=== PATIENT | female | born 1955 ===

== ENCOUNTER 2022-10-06 17:53 | Emergency (ER) | payer OTHER ==
--- OUTSIDE RECORDS SUMMARY | 2022-10-06 18:00 | XMS REPORT | Continuity of Care Document ---
:1955 Author Organization [facility] t Address [address] [place] [address] [place] [id number] Care Team Providers Name Role Phone [phone] Primary Care Physician Unavailable NOEMÍ VALADEZ Attending Clinician Unavailable JANNETTE NAILS Attending Clinician Unavailable Dave DANG, Elif Ramirez Attending Clinician Eva ROSEN, Selene Machuca Attending Clinician Unavailable Ara DANG, Salvador Schwab Attending Clinician SANAZ SALAMANCA Attending Clinician Unavailable Jeffery Rosado MD Attending Clinician Troy Cordon NP Attending Clinician Devon Hoyt MD Attending Clinician [phone] Dave Lemus MD Attending Clinician FOG_A_Provider Attending Clinician Unavailable Janie Mcallister Attending Clinician MORRIS DOVER Attending Clinician Unavailable Krysten Silverman MA Attending Clinician Unavailable KRIS CORBIN Attending Clinician Unavailable Nelli Funes MA Attending Clinician Unavailable MURIEL WALTER Attending Clinician Unavailable NOEMÍ VALADEZ Attending Clinician Unavailable Mirela DANG, Jerry Sorto Attending Clinician Emory Medina Attending Clinician Unavailable IRMA FINCH Attending Clinician Unavailable Noemí Valadez MD Attending Clinician NOEMÍ VALADEZ Admitting Clinician Unavailable FOG_A_Provider Admitting Clinician Unavailable Emory Medina Admitting Clinician Unavailable Payers Payer Name Policy Type Policy Number Effective Date Expiration Date Vanesa marquez AETNA HMO POS QPOS [id number] 2015 00:00:00 AETNA MEDICARE HMO [id number] POS PPO 00:00:00 MEDICARE PLAN PPO - [id number] AETNA AETNA (MEDICARE [id number] 2021 REPLACEMENT PPO) 00:00:00 [employer]ETNA MEDICARE PPO [id number] 2021 00:00:00 Problems Condition Condition Condition Status Onset Resolution Last Treating Co mments Source Name Details Category Date Date Treatment Clinician Date Essential Essential Disease Active [facility] hypertensi hypertensi 1 [facility] on on 00:[facility]: Hospita 00 l Statin Statin Disease Recurre 2019-05 [facility] intoleranc intoleranc nce [address] [facility] e e 00:00: Hospita 00 l Agatston Agatston Disease Active Metho di CAC score CAC score 02-13 st 100-199 100-199 00:00: Hospita 00 l High serum High serum Disease Active M [facility]i lipoprotei lipoprotei 928 st n(a) n(a) 00:00: Hospita 00 l Hyperlipid Hyperlipid Disease Active M ethodi emia emia 7-16 st 00:00: Hospita 00 l CAD in CAD in Disease Active [facility] navajo navajo 5-07 st artery artery 00:00: Hospita 00 l Pure Pure Disease Active [facility] hyperchole hyperchole 5-07 st sterolemia sterolemia 00:00: Ho spita 00 l Dizziness Dizziness Disease Active [facility] 3-20 st 00:00: Hospita 00 l Ptosis Ptosis Disease Active [address] 00:00: of 00 Medicin e Abnormal Abnormal Disease Active 2015-05 Metho di ECG ECG 2-08 st 00:00: Hospita 00 l SOB SOB Disease Active 2015-05 [facility] (shortness (shortness 2- st of breath) of breath) 00:00: Ho spita 00 l Irregular Irregular Disease Active 2015-05 [facility] heart beat heart beat 06-26 00:00: Hospita 00 l Allergies, Adverse Reactions, Alerts Allergy Allergy Status Severity Reaction(s) Onset Inactive Treating Comm ents Source Name Type Date Date Clinician NO KNOWN Allergy Active [facility] Family History Family Member Diagnosis Comments Start Date Stop Date Source Natural brother CABG/Stent [facility] Natural brother Heart failure Method [facility] Natural father CABG/Stent [facility] Natural father Heart failure [facility] Paternal aunt Breast cancer [facility] Natural sister CABG/Stent [facility] Natural sister Heart failure [facility] Natural sister Breast cancer [facility] Social History Social Habit Start Date Stop Date Quantity Comments Source History SDOH [facility] Alcohol Comment Medical C enter History SDOH [facility] Alcohol Std Drinks Medica l Center History SDOH [facility] Alcohol Binge Medical [facility] [facility] Gender identity [facility] Sexual orientation [facility] Alcohol intake 2022-06-28 2022-06-28 Lifetime Religion 00:00:00 00:00:00 non-drinker Hospital (finding) History of Social 2022-06-28 2022-06-[address] function 00:00:00 00:00:00 Hospital Tobacco use and 2022-03-29 2022-03-29 Smokeless Religion exposure 00:00:00 00:00:00 tobacco non-user Hospital History SDOH 2019-08-05 2019-08-[address] [facility] Alcohol Frequency 00:00:00 00:00:00 [facility] Center Sex Ass[birth year] At [birth year] Religion 00:00:00 00:00:00 Hospital Smoking Status Start Date Stop Date Source Never smoked tobacco Religion H ospital Medications Ordered Filled Start Stop Current Ordering Indication Dosage Frequency Signature Comments Components Source Medication Medication Date Date Medication? Clinician (SIG) Name Name aspirin Yes 81mg QD Take 1 [facility] (ECOTRIN) 06-27 tablet (81 st 81 MG 14:50: mg total) Hospita enteric 19 by mouth l coated daily. tablet dicyclomine Yes 10mg [id number] Take 1 [facility] (BENTYL) 10 2-[id number] MG capsule 00:00: 3D (10 mg Hospi ta 00 total) by l mouth 3 (three) times a day as needed (abdominal cramps). evolocumab Yes 140mg Q14D Inject 1 [facility] (REPATHA) 1-25 mL ([address] 140 mg/mL 00:00: total) Hospit a syringe 00 under the l injection skin every 14 (fourteen) days. evolocumab 2022- No 140mg Q14D Inject 1 M [facility]i (REPATHA) 1-25 01-25 mL ([address] 140 mg/mL 00:00: 00:00 total) Hospi ta syringe 00 :00 under the l injection skin every 14 (fourteen) days. spironolact 2021-05 Yes 25mg QD Take 1 Meth ayana one 2-30 tablet (25 st (ALDACTONE) 00:00: mg total) H ospita 25 MG 00 by mouth l tablet daily. aspirin 2021-05 Yes 81mg QD Take 1 [facility] (ECOTRIN) 2-20 tablet (81 st 81 MG 10:18: mg total) Hospita enteric 29 by mouth l coated daily. tablet aspirin 2021-05 Yes 81mg QD Take 1 [facility] (ECOTRIN) 2-20 tablet (81 st 81 MG 10:18: mg total) Hospita enteric 29 by mouth l coated daily. tablet aspirin 2021-05 Yes 81mg QD Take 1 [facility] (ECOTRIN) 2-20 tablet (81 st 81 MG 10:18: mg total) Hospita enteric 29 by mouth l coated daily. tablet aspirin 2021-05 Yes 81mg QD Take 1 [facility] (ECOTRIN) 2-20 tablet (81 st 81 MG 10:18: mg total) Hospita enteric 29 by mouth l coated daily. tablet amitriptyli 2021-05 No 10mg QD Take 1 [facility] ne (ELAVIL) 2-20 12-21 tablet (10 s t 10 MG 00:00: 05:59 mg total) Hospit a tablet 00 :00 by mouth l nightly. amitriptyli 2021-05 No 10mg QD Take 1 [facility] ne (ELAVIL) 2-20 12-21 tablet (10 s t 10 MG 00:00: 05:59 mg total) Hospit a tablet 00 :00 by mouth l nightly. amitriptyli 2021-05- No 10mg QD Take 1 Met [facility]odi ne (ELAVIL) 2-20 12-21 tablet (10 s t 10 MG 00:00: 05:59 mg total) Hospit a tablet 00 :00 by mouth l nightly. amitriptyli 2021-05- No 10mg QD Take 1 Met [facility]odi ne (ELAVIL) 2-20 12-21 tablet (10 s t 10 MG 00:00: 05:59 mg total) Hospit a tablet 00 :00 by mouth l nightly. amitriptyli 2021-05- No 10mg QD Take 1 Met [facility]odi ne (ELAVIL) 2-20 02-09 tablet (10 s t 10 MG 00:00: 00:00 mg total) Hospit a tablet 00 :00 by mouth l nightly. zolpidem 2021-05 Yes [facility] (AMBIEN) 10 1-17 st mg tablet 00:00: Hospita 00 l methylPREDN 2021-05- No follow Met [facility]odi ISolone 1-11 -[address] (Medrol, 00:00: 05:59 directions Ho spita Shan,) 4 mg 00 :00 l tablet methylPREDN 2021-05- No follow Met [facility] ISolone 1-11 -[address] (Medrol, 00:00: 05:59 directions Ho spita Shan,) 4 mg 00 :00 l tablet methylPREDN 2021-05- No follow Met [facility]odi ISolone 1-11 -[address] (Medrol, 00:00: 05:59 directions Ho spita Shan,) 4 mg 00 :00 l tablet methylPREDN 2021-05- No follow Met hodi ISolone 1-11 -[address] (Medrol, 00:00: 05:59 directions Ho spita Shan,) 4 mg 00 :00 l tablet methylPREDN 2021-05- No follow Met hodi ISolone 1-11 -[address] (Medrol, 00:00: 05:59 directions Ho spita Shan,) 4 mg 00 :00 l tablet spironolact 2021- Yes Method i one - st (ALDACTONE) 00:00: Hospit a 50 MG 00 l tablet spironolact 2021- Yes Method i one 05-26 st (ALDACTONE) 00:00: Hospit a 50 MG 00 l tablet spironolact 2021- Yes Method i one 05-26 st (ALDACTONE) 00:00: Hospit a 50 MG 00 l tablet spironolact 2021- Yes Method i one 05-26 st (ALDACTONE) 00:00: Hospit a 50 MG 00 l tablet spironolact 2021-053- No Metho di one 05-[address] (ALDACTONE) 00:00: 00:00 Hospi ta 50 MG 00 :00 l tablet aspirin 2022-0 Yes 81mg QD Take 1 [facility] (ECOTRIN) 7-11 tablet (81 st 81 MG 15:32: mg total) Hospita enteric 46 by mouth l coated daily. tablet aspirin 2022-0 Yes 81mg QD Take 1 [facility] (ECOTRIN) 7-11 tablet (81 st 81 MG 15:32: mg total) Hospita enteric 46 by mouth l coated daily. tablet aspirin 2022-0 Yes 81mg QD Take 1 [facility] (ECOTRIN) 7-11 tablet (81 st 81 MG 15:32: mg total) Hospita enteric 46 by mouth l coated daily. tablet evolocumab 2022-0 Yes 140mg Q14D Inject 1 [facility] (REPATHA) 1-27 mL ([address] 140 mg/mL 00:00: total) Hospit a syringe 00 under the l injection skin every 14 (fourteen) days. evolocumab 2022-0 Yes 140mg Q14D Inject 1 [facility] (REPATHA) 1-27 mL ([address] 140 mg/mL 00:00: total) Hospit a syringe 00 under the l injection skin every 14 (fourteen) days. evolocumab 2022-0 Yes 140mg Q14D Inject 1 [facility] (REPATHA) 1-27 mL ([address] 140 mg/mL 00:00: total) Hospit a syringe 00 under the l injection skin every 14 (fourteen) days. evolocumab 2022-0 Yes 140mg Q14D Inject 1 [facility] (REPATHA) 1-27 mL ([address] 140 mg/mL 00:00: total) Hospit a syringe 00 under the l injection skin every 14 (fourteen) days. evolocumab 2021-0 Yes 140mg Q14D Inject 1 [facility] (REPATHA) 1-27 mL ([address] 140 mg/mL 00:00: total) Hospit a syringe 00 under the l injection skin every 14 (fourteen) days. evolocumab 2021-0 Yes 140mg Q14D Inject 1 [facility] (REPATHA) 1-27 mL ([address] 140 mg/mL 00:00: total) Hospit a syringe 00 under the l injection skin every 14 (fourteen) days. evolocumab 2021-0 Yes 140mg Q14D Inject 1 [facility] (REPATHA) 1-27 mL ([address] 140 mg/mL 00:00: total) Hospit a syringe 00 under the l injection skin every 14 (fourteen) days. evolocumab 2021-0 2023- No 140mg Q14D Inject 1 M [facility]i (REPATHA) 1-27 01-25 mL ([address] 140 mg/mL 00:00: 00:00 total) Hospi ta syringe 00 :00 under the l injection skin every 14 (fourteen) days. ixekizumab 1-0 Yes [facility] (Taltz 4-04 st Syringe) 80 00:00: Hospit a mg/mL 00 l syringe ixekizumab 1-0 Yes [facility] (Taltz 4-04 st Syringe) 80 00:00: Hospit a mg/mL 00 l syringe ixekizumab 1-0 Yes [facility] (Taltz 4-04 st Syringe) 80 00:00: Hospit a mg/mL 00 l syringe ixekizumab 2021-0 Yes [facility] (Taltz 4-04 st Syringe) 80 00:00: Hospit a mg/mL 00 l syringe ixekizumab 2021-0 Yes [facility] (Taltz 4-04 st Syringe) 80 00:00: Hospit a mg/mL 00 l syringe ixekizumab 2021-0 Yes [facility] (Taltz 4-04 st Syringe) 80 00:00: Hospit a mg/mL 00 l syringe ixekizumab 2021-0 Yes [facility] (Taltz 4-04 st Syringe) 80 00:00: Hospit a mg/mL 00 l syringe ixekizumab 0 Yes [facility] (Taltz 4-04 st Syringe) 80 00:00: Hospit a mg/mL 00 l syringe evolocumab 2019-05- No 140mg Q14D Inject 1 M ethodi (REPATHA) 06-11 mL ([address] 140 mg/mL 00:00: 00:00 total) Hospi ta syringe 00 :00 under the l injection skin every 14 (fourteen) days. evolocumab 2019-05- No 140mg Q14D Inject 1 M ethodi (REPATHA) 06-11 mL ([address] 140 mg/mL 00:00: 00:00 total) Hospi ta syringe 00 :00 under the l injection skin every 14 (fourteen) days. evolocumab 2019-05- No 140mg Q14D Inject 1 M ethodi (REPATHA) 06-11 mL ([address] 140 mg/mL 00:00: 00:00 total) Hospi ta syringe 00 :00 under the l injection skin every 14 (fourteen) days. evolocumab 2019-05- No 140mg Q14D Inject 1 M ethodi (REPATHA) 06-11 mL ([address] 140 mg/mL 00:00: 00:00 total) Hospi ta syringe 00 :00 under the l injection skin every 14 (fourteen) days. evolocumab 2019-05- No 140mg Q14D Inject 1 M ethodi (REPATHA) 06-11 mL ([address] 140 mg/mL 00:00: 00:00 total) Hospi ta syringe 00 :00 under the l injection skin every 14 (fourteen) days. evolocumab 2019-05- No 140mg Q14D Inject 1 M ethodi (REPATHA) 06-11 mL ([address] 140 mg/mL 00:00: 00:00 total) Hospi ta syringe 00 :00 under the l injection skin every 14 (fourteen) days. evolocumab 2019-05- No 140mg Q14D Inject 1 M ethodi (REPATHA) 06-11 mL ([address] 140 mg/mL 00:00: 00:00 total) Hospi ta syringe 00 :00 under the l injection skin every 14 (fourteen) days. zolpidem 2020-0 Yes 5mg Take [address] (AMBIEN) 5 9-01 by mouth [facility] MG tablet 14:24: every Medical 06 night as Center needed for Insomnia. coenzyme 2020-0 Yes 100mg QD Take [address] Q10 100 mg 9-01 mg by [facility] capsule 14:24: mouth Medical 06 daily. Center simvastatin 2020-0 Yes 20mg QD Take [address] (ZOCOR) 20 9-01 by mouth [facility] MG tablet 14:24: nightly. [address] levothyroxi 2020-0 Yes 25ug Take [address] ne 9-01 mcg by [facility]ukes (SYNTHROID, 14:24: mouth Medic al LEVOTHROID) 06 Every Center 25 MCG morning on tablet an empty stomach. prednisoLON 2020-0 Yes 1[drp] Q.25D [address] E acetate 9-01 (four) [facility]ukes (PRED 14:24: times Medical FORTE) 1 % 06 daily. Center ophthalmic suspension zolpidem 2020-0 Yes 5mg Take [address] (AMBIEN) 5 9-01 by mouth [facility] MG tablet 14:24: every Medical 06 night as Center needed for Insomnia. etanercept 2020-0 Yes Inject [facility] (ENBREL 01-17 subcutaneo Lukes SUBQ) 14:24: usly. [address] coenzyme 2020-0 Yes 100mg QD Take [address] Q10 100 mg 9-01 mg by [facility] capsule 14:24: mouth Medical 06 daily. Center simvastatin 2020-0 Yes 20mg QD Take [address] (ZOCOR) 20 9-01 by mouth [facility] MG tablet 14:24: nightly. [address] levothyroxi 2020-0 Yes 25ug Take [address] ne 9-01 mcg by [facility]ukes (SYNTHROID, 14:24: mouth Medic al LEVOTHROID) 06 Every Center 25 MCG morning on tablet an empty stomach. prednisoLON 2020-0 Yes 1[drp] Q.25D [address] [facility] acetate 9-01 (four) [facility]ukes (PRED 14:24: times Medical FORTE) 1 % 06 daily. Center ophthalmic suspension zolpidem 2020-0 Yes 5mg Take [address] (AMBIEN) 5 9-01 by mouth [facility] MG tablet 14:24: every Medical 06 night as Center needed for Insomnia. etanercept 2020-0 Yes Inject [facility] (ENBREL 9- subcutaneo Lukes SUBQ) 14:24: usly. Medical 06 Center coenzyme 2020-0 Yes 100mg QD Take [address] Q10 100 mg 9-01 mg by [facility] capsule 14:24: mouth Medical 06 daily. Center simvastatin 2020-0 Yes 20mg QD Take [address] (ZOCOR) 20 9- by mouth [facility] MG tablet 14:24: nightly. [facility] 06 [place] levothyroxi 2020-0 Yes 25ug Take [address] ne 9-01 mcg by [facility]ukes (SYNTHROID, 14:24: mouth Medic al LEVOTHROID) 06 Every Center 25 MCG morning on tablet an empty stomach. prednisoLON 2020-0 Yes 1[drp] Q.25D [address] [facility] acetate 9-01 (four) [facility] (PRED 14:24: times Medical FORTE) 1 % 06 daily. Center ophthalmic suspension zolpidem 2020-0 Yes 5mg Take [address] (AMBIEN) 5 9- by mouth [facility] MG tablet 14:24: every Medical 06 night as Center needed for Insomnia. etanercept 2020-0 Yes Inject [facility] (ENBREL - subcutaneo Lukes SUBQ) 14:24: usly. [facility] 06 Center coenzyme 2020-0 Yes 100mg QD Take [address] Q10 100 mg 9- mg by [facility]ukes capsule 14:24: mouth Medical 06 daily. Center simvastatin 2020-0 Yes 20mg QD Take [address] (ZOCOR) 20 9- by mouth [facility] MG tablet 14:24: nightly. [place] [id number] Center levothyroxi 2020-0 Yes 25ug Take [address] ne 9-01 mcg by [facility]ukes (SYNTHROID, 14:24: mouth Medic al LEVOTHROID) 06 Every Center 25 MCG morning on tablet an empty stomach. prednisoLON 2020-0 Yes 1[drp] Q.25D [address] [facility] acetate 9-01 (four) [facility]ukes (PRED 14:24: times Medical FORTE) 1 % 06 daily. Center ophthalmic suspension zolpidem 2020-0 Yes 5mg Take [address] (AMBIEN) 5 9-01 by mouth [facility] MG tablet 14:24: every Medical 06 night as Center needed for Insomnia. etanercept 2020-0 Yes Inject [facility] (ENBREL 9- subcutaneo Lukes SUBQ) 14:24: usly. Medical 06 Center coenzyme 2020-0 Yes 100mg QD Take [address] Q10 100 mg 9-01 mg by [facility]ukes capsule 14:24: mouth Medical 06 daily. Center simvastatin 2020-0 Yes 20mg QD Take [address] (ZOCOR) 20 9- by mouth [facility]ukes MG tablet 14:24: nightly. [facility] 06 [place] levothyroxi 2020-0 Yes 25ug Take [address] ne 9-01 mcg by Lukes (SYNTHROID, 14:24: mouth Medic al LEVOTHROID) 06 Every Center 25 MCG morning on tablet an empty stomach. prednisoLON 2020-0 Yes 1[drp] Q.25D [address] [facility] acetate 9-01 (four) Lukes (PRED 14:24: times Medical FORTE) 1 % 06 daily. Center ophthalmic suspension zolpidem 2020-0 Yes 5mg Take [address] (AMBIEN) 5 9-01 by mouth [facility] MG tablet 14:24: every Medical 06 night as Center needed for Insomnia. etanercept 2020-0 Yes Inject [facility] (ENBREL 9- subcutaneo Lukes SUBQ) 14:24: usly. Medical 06 [place] coenzyme 2020-0 Yes 100mg QD Take [address] Q10 100 mg 9- mg by [facility]ukes capsule 14:24: mouth Medical 06 daily. Center simvastatin 2020-0 Yes 20mg QD Take [address] (ZOCOR) 20 9- by mouth [facility]ukes MG tablet 14:24: nightly. [facility] 06 [place] levothyroxi 2020-0 Yes 25ug Take [address] ne 9-01 mcg by Lukes (SYNTHROID, 14:24: mouth Medic al LEVOTHROID) 06 Every Center 25 MCG morning on tablet an empty stomach. prednisoLON 2020-0 Yes 1[drp] Q.25D [address] [facility] acetate 9-01 (four) [facility]ukes (PRED 14:24: times Medical FORTE) 1 % 06 daily. Center ophthalmic suspension zolpidem 2020-0 Yes 5mg Take [address] (AMBIEN) 5 9-01 by mouth [facility] MG tablet 14:24: every Medical 06 night as Center needed for Insomnia. etanercept 2020-0 Yes Inject [facility] (ENBREL 9- subcutaneo Lukes SUBQ) 14:24: usly. Medical 06 Center coenzyme 2020-0 Yes 100mg QD Take [address] Q10 100 mg 9-01 mg by [facility]ukes capsule 14:24: mouth Medical 06 daily. Center simvastatin 2020-0 Yes 20mg QD Take [address] (ZOCOR) 20 9-01 by mouth [facility] MG tablet 14:24: nightly. [facility] 06 [place] levothyroxi 2020-0 Yes 25ug Take [address] ne 9-01 mcg by Lukes (SYNTHROID, 14:24: mouth Medic al LEVOTHROID) 06 Every Center 25 MCG morning on tablet an empty stomach. prednisoLON 2020-0 Yes 1[drp] Q.25D [address] E acetate 9-01 (four) [facility]ukes (PRED 14:24: times Medical FORTE) 1 % 06 daily. Center ophthalmic suspension zolpidem 2020-0 Yes 5mg Take [address] (AMBIEN) 5 9-01 by mouth [facility] MG tablet 14:24: every Medical 06 night as Center needed for Insomnia. etanercept 2020-0 Yes Inject [facility] (ENBREL 9- subcutaneo Lukes SUBQ) 14:24: usly. [facility] 06 [place] coenzyme 2020-0 Yes 100mg QD Take [address] Q10 100 mg 9-01 mg by [facility]ukes capsule 14:24: mouth Medical 06 daily. Center simvastatin 2020-0 Yes 20mg QD Take [address] (ZOCOR) 20 9-01 by mouth [facility] MG tablet 14:24: nightly. [facility] 06 [place] levothyroxi 2020-0 Yes 25ug Take [address] ne 9-01 mcg by Lukes (SYNTHROID, 14:24: mouth Medic al LEVOTHROID) 06 Every Center 25 MCG morning on tablet an empty stomach. prednisoLON 2020-0 Yes 1[drp] Q.25D [address] E acetate 9-01 (four) [facility] (PRED 14:24: times Medical FORTE) 1 % 06 daily. Center ophthalmic suspension zolpidem 2020-0 Yes 5mg Take [address] (AMBIEN) 5 9-01 by mouth [facility] MG tablet 14:24: every Medical 06 night as Center needed for Insomnia. etanercept 2020-0 Yes Inject [facility] (ENBREL 9-01 subcutaneo Lukes SUBQ) 14:24: usly. [facility] 06 Center coenzyme 2020-0 Yes 100mg QD Take [address] Q10 100 mg 9-01 mg by [facility]ukes capsule 14:24: mouth Medical 06 daily. Center simvastatin 2020-0 Yes 20mg QD Take [address] (ZOCOR) 20 9-01 by mouth [facility] MG tablet 14:24: nightly. [address] levothyroxi 2020-0 Yes 25ug Take [address] ne 9-01 mcg by Lukes (SYNTHROID, 14:24: mouth Medic al LEVOTHROID) 06 Every Center 25 MCG morning on tablet an empty stomach. etanercept 2020-0 Yes Inject [facility] (ENBREL 9-01 subcutaneo Lukes SUBQ) 14:24: usly. [address] coenzyme 2020-0 Yes 100mg QD Take [address] Q10 100 mg 9-01 mg by [facility]ukes capsule 14:24: mouth Medical 06 daily. [place] simvastatin 2020-0 Yes 20mg QD Take [address] (ZOCOR) 20 9-01 by mouth [facility] MG tablet 14:24: nightly. [address] levothyroxi 2020-0 Yes 25ug Take [address] ne 9-01 mcg by Lukes (SYNTHROID, 14:24: mouth Medic al LEVOTHROID) 06 Every Center 25 MCG morning on tablet an empty stomach. prednisoLON 2020-0 Yes 1[drp] Q.25D [address] E acetate 9-01 (four) [facility]ukes (PRED 14:24: times Medical FORTE) 1 % 06 daily. Center ophthalmic suspension zolpidem 2020-0 Yes 5mg Take [address] [facility] (AMBIEN) 5 9-01 by mouth [facility] MG tablet 14:24: every Medical 06 night as Center needed for Insomnia. prednisoLON 2020-0 Yes 1[drp] Q.25D [address] E acetate 9-01 (four) [facility]ukes (PRED 14:24: times Medical FORTE) 1 % 06 daily. Center ophthalmic suspension zolpidem 2020-0 Yes 5mg Take [address] (AMBIEN) 5 9-01 by mouth [facility] MG tablet 14:24: every Medical 06 night as Center needed for Insomnia. etanercept 2020-0 Yes Inject [facility] (ENBREL 9-01 subcutaneo Lukes SUBQ) 14:24: usly. [address] coenzyme 2020-0 Yes 100mg QD Take [address] Q10 100 mg 9-01 mg by [facility]ukes capsule 14:24: mouth Medical 06 daily. Center simvastatin 2020-0 Yes 20mg QD Take [address] (ZOCOR) 20 9-01 by mouth [facility] MG tablet 14:24: nightly. [address] levothyroxi 2020-0 Yes 25ug Take [address] ne 9-01 mcg by Lukes (SYNTHROID, 14:24: mouth Medic al LEVOTHROID) 06 Every Center 25 MCG morning on tablet an empty stomach. prednisoLON 2020-0 Yes 1[drp] Q.25D [address] E acetate 9-01 (four) [facility] (PRED 14:24: times Medical FORTE) 1 % 06 daily. [place] ophthalmic suspension zolpidem 2020-0 Yes 5mg Take [address] (AMBIEN) 5 9- by mouth [facility] MG tablet 14:24: every Medical 06 night as Center needed for Insomnia. etanercept 2020-0 Yes Inject [facility] (ENBREL 9-01 subcutaneo Lukes SUBQ) 14:24: usly. [address] coenzyme 2020-0 Yes 100mg QD Take [address] Q10 100 mg 9- mg by [facility]ukes capsule 14:24: mouth Medical 06 daily. Center simvastatin 2020-0 Yes 20mg QD Take [address] (ZOCOR) 20 9-01 by mouth [facility] MG tablet 14:24: nightly. [address] etanercept 2020-0 Yes Inject [facility] (ENBREL 9-01 subcutaneo Lukes SUBQ) 14:24: usly. [facility] 06 [place] levothyroxi 2020-0 Yes 25ug Take [address] ne 9-01 mcg by Lukes (SYNTHROID, 14:24: mouth Medic al LEVOTHROID) 06 Every Center 25 MCG morning on tablet an empty stomach. prednisoLON 2020-0 Yes 1[drp] Q.25D [address] E acetate 9-01 (four) [facility] (PRED 14:24: times Medical FORTE) 1 % 06 daily. Center ophthalmic suspension prednisoLON 2020-0 Yes 1[drp] Place 1 [facility] acetate 8-31 Drop into Colle ge (PRED 00:00: the left of FORTE) 1 % 00 eye four Medic in ophthalmic times e suspension daily. Shake well before instillati on moxifloxaci 2020-0 Yes 1[drp] Place 1 [facility] n (VIGAMOX) 8-31 Drop into Col lege 0.5 % 00:00: the left of ophthalmic 00 eye four Medic in solution times e daily. prednisoLON 2020-0 Yes 1[drp] Place 1 [facility] E acetate 8-31 Drop into Colle ge (PRED 00:00: the left of FORTE) 1 % 00 eye four Medic in ophthalmic times e suspension daily. Shake well before instillati on moxifloxaci 2020-0 Yes 1[drp] Place 1 [facility] n (VIGAMOX) 8-31 Drop into Col lege 0.5 % 00:00: the left of ophthalmic 00 eye four Medic in solution times e daily. prednisoLON 2020-0 Yes 1[drp] Place 1 [facility] E acetate 8-31 Drop into Colle ge (PRED 00:00: the left of FORTE) 1 % 00 eye four Medic in ophthalmic times e suspension daily. Shake well before instillati on moxifloxaci 2020-0 Yes 1[drp] Place 1 [facility] n (VIGAMOX) 8-31 Drop into Col lege 0.5 % 00:00: the left of ophthalmic 00 eye four Medic in solution times e daily. prednisoLON 2020-0 Yes 1[drp] Place 1 [facility] E acetate 8-31 Drop into Colle ge (PRED 00:00: the left of FORTE) 1 % 00 eye four Medic in ophthalmic times e suspension daily. Shake well before instillati on moxifloxaci 2020-0 Yes 1[drp] Place 1 [facility] n (VIGAMOX) 8-31 Drop into Col lege 0.5 % 00:00: the left of ophthalmic 00 eye four Medic in solution times e daily. Apremilast 2020-0 Yes Take by [facility] (OTEZLA) 30 3-05 mouth. [facility] TABS 17:39: of 02 Medicin e Zolpidem 2020-0 Yes Take by Patricio Tartrate 3-05 mouth. [facility] Gu[facility] ([facility]) 17:39: of 02 Medicin e Atorvastati 2020-0 Yes Take by Deale danette n Calcium 3-05 mouth. Guadalupe Guerra (LIPITOR 17:39: of OR) 02 Medicin e levothyroxi 2020-0 Yes 25ug Take 25 Deale danette ne 3-05 mcg by [facility] (SYNTHROID) 17:39: mouth of 25 MCG 02 daily. Medicin tablet e Apremilast 2020-0 Yes Take by [facility] (OTEZLA) 30 3-05 mouth. Colleg e MG TABS 17:39: of 02 Medicin e Zolpidem 2020-0 Yes Take by [facility] Tartrate 3-05 mouth. Guadalupe Guerra ([facility] OR) 17:39: of 02 Medicin e Atorvastati 2020-0 Yes Take by Deale danette n Calcium 3-05 mouth. Guadalupe Guerra (LIPITOR 17:39: of OR) 02 Medicin e levothyroxi 2020-0 Yes 25ug Take 25 Deale danette ne 3-05 mcg by Guadalupe Guerra (SYNTHROID) 17:39: mouth of 25 MCG 02 daily. Medicin tablet e Apremilast 2020-0 Yes Take by [facility] (OTEZLA) 30 3-05 mouth. Colleg e MG TABS 17:39: of 02 Medicin e Zolpidem 2020-0 Yes Take by Pat[facility] Tartrate 3-05 mouth. Guadalupe Guerra ([facility] OR) 17:39: of 02 Medicin e Atorvastati 2020-0 Yes Take by Deale danette n Calcium 3-05 mouth. Guadalupe Guerra (LIPITOR 17:39: of OR) 02 Medicin e levothyroxi 2020-0 Yes 25ug Take 25 Deale danette ne 3-05 mcg by [facility] (SYNTHROID) 17:39: mouth of 25 MCG 02 daily. Medicin tablet e Apremilast 2020-0 Yes Take by [facility] (OTEZLA) 30 3-05 mouth. Colleg e MG TABS 17:39: of 02 Medicin e Zolpidem 2020-0 Yes Take by [facility] Tartrate 3-05 mouth. Guadalupe Guerra ([facility] OR) 17:39: of 02 Medicin e Atorvastati 2020-0 Yes Take by Deale danette n Calcium 3-05 mouth. Guadalupe Guerra (LIPITOR 17:39: of OR) 02 Medicin e levothyroxi 2020-0 Yes 25ug Take 25 Deale danette ne 3-05 mcg by Guadalupe Guerra (SYNTHROID) 17:39: mouth of 25 MCG 02 daily. Medicin tablet e Apremilast 2020-0 Yes Take by [facility] (OTEZLA) 30 3-05 mouth. Colleg e MG TABS 17:39: of 02 Medicin e Zolpidem 2020-0 Yes Take by [facility] Tartrate 3-05 mouth. Guadalupe Guerra ([facility] OR) 17:39: of 02 Medicin e Atorvastati 2020-0 Yes Take by Deale danette n Calcium 3-05 mouth. Guadalupe Guerra (LIPITOR 17:39: of OR) 02 Medicin e levothyroxi 2020-0 Yes 25ug Take 25 Deale danette ne 3-05 mcg by Guadalupe Guerra (SYNTHROID) 17:39: mouth of 25 MCG 02 daily. Medicin tablet e levothyroxi 2020-0 Yes 25ug Take 25 Deale danette ne 2-03 mcg by Guadalupe Guerra (SYNTHROID) 20:19: mouth of 25 MCG 38 daily. Medicin tablet e Apremilast 2020-0 Yes Take by [facility] (OTEZLA) 30 2-03 mouth. Colleg e MG TABS 20:17: of 17 Medicin e Zolpidem 2020-0 Yes Take by Patricio Tartrate 2-03 mouth. Guadalupe Guerra ([facility] OR) 20:17: of 17 Medicin e Atorvastati 2020-0 Yes Take by Deale danette n Calcium 2-03 mouth. Guadalupe Guerra (LIPITOR 20:17: of OR) 17 Medicin e simvastatin 2018-05 Yes 20mg 20 mg. [facility] (ZOCOR) 20 0-31 st mg tablet 00:00: Hospita 00 simvastatin 2018-05 Yes 20mg 20 mg. [facility] (ZOCOR) 20 0-31 st mg tablet 00:00: Hospita 00 simvastatin 2018-05 Yes 20mg 20 mg. [facility] (ZOCOR) 20 0-31 st mg tablet 00:00: Hospita 00 simvastatin 2018-05 Yes 20mg 20 mg. [facility] (ZOCOR) 20 0-31 st mg tablet 00:00: Hospita simvastatin 2018-05 Yes 20mg 20 mg. [facility] (ZOCOR) 20 0-31 st mg tablet 00:00: Hospita 00 l simvastatin 2018-05 Yes 20mg 20 mg. [facility] (ZOCOR) 20 0-31 st mg tablet 00:00: Hospita l simvastatin 2018-05 Yes 20mg 20 mg. [facility] (ZOCOR) 20 0-31 st mg tablet 00:00: Hospita l simvastatin 2018-05 Yes 20mg 1 tablet [facility] (ZOCOR) 20 0-31 ([address] mg tablet 00:00: total). Hospi ta l simvastatin 2020- No 40mg Take 40 mg [facility] (ZOCOR) 40 5-08 05-08 by mouth. Col lege MG tablet 00:00: 04:59 of 00 :00 Medicin e simvastatin 2019- No 40mg Take 40 mg [facility] (ZOCOR) 40 5-08 05-08 by mouth. Col lege MG tablet 00:00: 04:59 of 00 :00 Medicin e prednisoLON Yes 1[drp] Place 1 [facility] E acetate 6-09 Drop into Colle ge (PRED 00:00: the left of FORTE) 1 % 00 eye four Medic in ophthalmic times e suspension daily. Shake well before instillati on prednisoLON Yes 1[drp] Place 1 [facility] E acetate 6-09 Drop into Colle ge (PRED 00:00: the left of FORTE) 1 % 00 eye four Medic in ophthalmic times e suspension daily. Shake well before instillati on prednisoLON 2020- No 1[drp] Place 1 [facility] E acetate 6-09 08-31 Drop into Ian ege (PRED 00:00: 00:00 the left of FORTE) 1 % 00 :00 eye four Medic in ophthalmic times e suspension daily. Shake well before instillati on diclofenac 2016- Yes [facility] (VOLTAREN) 3-16 College 50 MG EC 00:00: of tablet 00 Medicin e diclofenac 2017 Yes [facility] (VOLTAREN) 3-16 College 50 MG EC 00:00: of tablet 00 Medicin e diclofenac 2017-0 Yes [facility] (VOLTAREN) 3-16 College 50 MG EC 00:00: of tablet 00 Medicin e diclofenac Yes [facility] (VOLTAREN) 3-16 College 50 MG EC 00:00: of tablet 00 Medicin e diclofenac 2017-0 Yes [facility] (VOLTAREN) 3-16 College 50 MG EC 00:00: of tablet 00 Medicin e diclofenac 2017-0 Yes [facility] (VOLTAREN) 3-16 College 50 MG EC 00:00: of tablet 00 Medicin e simvastatin 2017-0 Yes [facility] (ZOCOR) 20 1-31 College MG tablet 00:00: of 00 Medicin e simvastatin 2017-0 Yes [facility] (ZOCOR) 20 1-31 College MG tablet 00:00: of 00 Medicin e simvastatin 2017-0 Yes [facility] (ZOCOR) 20 1-31 College MG tablet 00:00: of 00 Medicin e simvastatin 2017-0 Yes [facility] (ZOCOR) 20 1-31 College MG tablet 00:00: of 00 Medicin e simvastatin 2017-0 Yes [facility] (ZOCOR) 20 1-31 College MG tablet 00:00: of 00 Medicin e simvastatin 2017-0 Yes [facility] (ZOCOR) 20 1-31 College MG tablet 00:00: of 00 Medicin e cycloSPORIN 2016-1 Yes 1[drp] Place 1 [facility] E 2-05 Drop into College (RESTASIS) 00:00: both eyes of 0.05 % 00 two times Medicin ophthalmic daily. e emulsion cycloSPORIN 2016- Yes 1[drp] Place 1 [facility] E 2-05 Drop into College (RESTASIS) 00:00: both eyes of 0.05 % 00 two times Medicin ophthalmic daily. e emulsion cycloSPORIN 2016- Yes 1[drp] Place 1 [facility] E 2-05 Drop into College (RESTASIS) 00:00: both eyes of 0.05 % 00 two times Medicin ophthalmic daily. e emulsion cycloSPORIN 2016- Yes 1[drp] Place 1 [facility] E 2-05 Drop into College (RESTASIS) 00:00: both eyes of 0.05 % 00 two times Medicin ophthalmic daily. e emulsion cycloSPORIN 2016-1 Yes 1[drp] Place 1 [facility] E 2-05 Drop into College (RESTASIS) 00:00: both eyes of 0.05 % 00 two times Medicin ophthalmic daily. e emulsion cycloSPORIN 2016- Yes 1[drp] Place 1 [facility] E 2-05 Drop into College (RESTASIS) 00:00: both eyes of 0.05 % 00 two times Medicin ophthalmic daily. e emulsion zolpidem 2015-05 Yes 5mg 5 mg. [facility] (AMBIEN) 5 0-19 st MG tablet 00:00: Hospita 00 l zolpidem 2015-05 Yes 5mg 5 mg. [facility] (AMBIEN) 5 0-[facility] st MG tablet 00:00: Hospita 00 l zolpidem 2015-05 Yes 5mg 5 mg. [facility] (AMBIEN) 5 0-19 st MG tablet 00:00: Hospita 00 l zolpidem 2015-05 Yes 5mg 5 mg. [facility] (AMBIEN) 5 0-19 st MG tablet 00:00: Hospita 00 l zolpidem 2015-05 Yes 5mg 5 mg. [facility] (AMBIEN) 5 0-19 st MG tablet 00:00: Hospita 00 l zolpidem 2015-05 Yes 5mg 5 mg. [facility] (AMBIEN) 5 0-19 st MG tablet 00:00: Hospita 00 l zolpidem 2015-05 Yes 5mg 5 mg. [facility] (AMBIEN) 5 0-19 st MG tablet 00:00: Hospita 00 l zolpidem 2015-05 202- No 5mg 1 tablet [facility] (AMBIEN) 5 0-19 -23 ([address] MG tablet 00:00: 00:00 total). Hosp damaso 00 :00 l Vital Signs Vital Name Observation Time Observation Value Comments Source HEIGHT 2019-12-14 00:00:00 170.2 cm WEIGHT 2019-12-14 00:00:00 74.39 kg Systolic blood 2022-06-27 20:49:00 139 mm[Hg] [facility] pressure Diastolic blood 2022-06-27 20:49:00 85 mm[Hg] [facility] pressure Heart rate 2022-06-27 20:49:00 73 /[facility] Body height 2022-06-27 20:49:00 157.5 [facility] Body weight 2022-06-27 20:49:00 76.204 kg [facility] BMI 2022-06-27 20:49:00 30.73 kg/m2 [facility] height 2022-05-07 16:18:00 157.5 cm [facility] Body weight 2022-05-07 16:18:00 76.204 kg [facility] BMI 2022-05-07 16:18:00 30.73 kg/m2 [facility] Systolic blood 2022-03-29 16:27:00 123 mm[Hg] [facility] pressure Diastolic blood 2022-03-29 16:27:00 79 mm[Hg] [facility] pressure Heart rate 2022-03-29 16:27:00 77 /min [facility] Systolic blood 2021-11-26 20:30:00 136 mm[Hg] [facility] pressure Diastolic blood 2021-11-26 20:30:00 83 mm[Hg] [facility] pressure Heart rate 2021-11-26 20:30:00 74 /min [facility] Body height 2021-11-26 20:30:00 157.5 cm [facility] Body weight 2021-11-26 20:30:00 77.656 kg [facility] BMI 2021-11-26 20:30:00 31.31 kg/m2 [facility] Oxygen saturation in 2021-11-26 20:30:00 100 /min [facility] Arterial blood by Pulse oximetry Procedures Procedure Date / Time Performing Clinician Source Performed LIPID PANEL 2022-07-25 15:33:00 Troy Cordon spital BUN 2022-06-20 10:13:19 [facility] CREATININE SERUM 2022-06-20 10:13:19 [facility] OCT, RETINA - OU - BOTH 2022-06-20 08:53:07 [facility] EYES [facility] OCT, OPTIC NERVE - OU - 2022-06-20 08:53:06 [facility] EYES Medicine 24-2 KATARZYNA FASTER,OU-BOTH 2022-06-20 08:53:04 [facility] EYES [facility] LIPID PANEL 2022-06-10 20:01:00 Troy Cordon ECG 12-LEAD 2022-06-10 19:42:36 Jeffery Rosado LIPID PANEL 2021-11-28 15:00:00 Troy Cordon spifinn COMPREHENSIVE METABOLIC 2021-11-28 15:00:00 Troy Cordon Meth [facility] PANEL HEMOGLOBIN A1C 2021-11-28 15:00:00 Troy Cordon Ho spital ECG 12-LEAD 2021-11-26 20:41:20 Jeffery Rosado Ho spital POC URINALYSIS DIPSTICK 2021-10-01 19:54:00 Devon Hoyt i [facility] BLADDER SCAN 2021-10-01 00:00:00 Devon Hoyt [facility] PRK ENHANCEMENT TO BCM 2021-06-22 14:13:50 [facility] WITHIN 1-2 YEARS Medicin e LIPID PANEL 2021-04-25 14:01:00 Jeffery Rosado Ho spital RELAXING INCISION LEVEL 2021-03-15 09:00:[address] ECG 12-LEAD 2021-03-13 19:13:55 Jerry Marti Ho spital ENDOTHELIAL PHOTOGRAPHY 2019-06-21 23:04:03 Noemí Valadez [facility] - OS - LEFT EYE Medicine OCT, RETINA - OS - LEFT 2019-06-21 21:48:08 Noemí Val[facility] Plan of Care Planned Activity Planned Date Details Comments Source Future Scheduled 2023-01-[address] [facility] Test 00:00:00 (Season Ended) [code = Medic al Center INFLUENZA VACCINE (Season Ended)] Future Scheduled 2023-01-[address] [facility] Test 00:00:00 (Season Ended) [code = Medic al Center INFLUENZA VACCINE (Season Ended)] Future Scheduled 2023-01-[address] [facility] Test 00:00:00 (Season Ended) [code = Medic al Center INFLUENZA VACCINE (Season Ended)] Future Scheduled 2022-10-04 65+ [facility]OCOCCAL [facility] Test 08:34:34 VACCINE (1 - PCV) [code = 65+ PNEUMOCOCCAL VACCINE (1 - PCV)] Future Scheduled 2022-10-04 Hepatitis C screening [facility] Hospital Test 08:34:34 (procedure) [code = [id number]] Future Scheduled 2022-10-04 COLONOSCOPY SCREENING [facility] Hospital Test 08:34:34 [code = COLONOSCOPY SCREENING] Future Scheduled 2022-10-04 SHINGLES VACCINES (1 [facility] Test 08:34:34 of 2) [code = SHINGLES VACCINES (1 of 2)] Future Scheduled 2022-10-04 [facility] Test 08:34:34 SCREENING [code = BREAST CANCER SCREENING] Future Scheduled 2022-10-04 COVID-19 VACCINE (3 - Me [facility] Hospital Test 08:34:34 Booster for Moderna series) [code = COVID-19 VACCINE (3 - Booster for Moderna series)] Future Scheduled 2022-10-04 INFLUENZA VACCINE [facility] Test 08:34:34 [code = INFLUENZA VACCINE] Future Scheduled 2022-05-28 65+ [facility]OCOCCAL [facility] Test 16:41:52 VACCINE (1 - PCV) [code = 65+ PNEUMOCOCCAL VACCINE (1 - PCV)] Future Scheduled 2022-05-28 Hepatitis C screening [facility] Test 16:41:52 (procedure) [code = [id number]] Future Scheduled 2022-05-28 BREAST CANCER [facility] Test 16:41:52 SCREENING [code = BREAST CANCER SCREENING] Future Scheduled 2022-05-28 COLONOSCOPY SCREENING [facility] Test 16:41:52 [code = COLONOSCOPY SCREENING] Future Scheduled 2022-05-28 SHINGLES VACCINES (1 [facility] Test 16:41:52 of 2) [code = SHINGLES VACCINES (1 of 2)] Future Scheduled 2022-05-28 COVID-19 VACCINE (3 - Me [facility] Test 16:41:52 Booster for Moderna series) [code = COVID-19 VACCINE (3 - Booster for Moderna series)] Future Scheduled 2022-05-28 INFLUENZA VACCINE [facility] Test 16:41:52 [code = INFLUENZA VACCINE] Future Scheduled 2022-05-28 65+ [facility]OCOCCAL [facility] Test 16:41:52 VACCINE (1 - PCV) [code = 65+ PNEUMOCOCCAL VACCINE (1 - PCV)] Future Scheduled 2022-05-28 Hepatitis C screening [facility] Test 16:41:52 (procedure) [code = [id number]] Future Scheduled 2022-05-28 BREAST CANCER [facility] Test 16:41:52 SCREENING [code = BREAST CANCER SCREENING] Future Scheduled 2022-05-28 [facility] 16:41:52 [code = COLONOSCOPY SCREENING] Future Scheduled 2022-05-28 SHINGLES VACCINES (1 [facility] Test 16:41:52 of 2) [code = SHINGLES VACCINES (1 of 2)] Future Scheduled 2022-05-28 COVID-19 VACCINE (3 - Me [facility] Test 16:41:52 Booster for Moderna series) [code = COVID-19 VACCINE (3 - Booster for Moderna series)] Future Scheduled 2022-05-28 INFLUENZA VACCINE [facility] Test 16:41:52 [code = INFLUENZA VACCINE] Future Scheduled 2022-05-[address] [facility] Test 00:00:00 (12+) [code = Medical Center DEPRESSION SCREENING (12+)] Future Scheduled 2022-05-19 FALLS RISK SCREENING [facility] Test 00:00:00 [code = FALLS RISK Medical C enter SCREENING] Future Scheduled 2022-05-[address] [facility] Test 00:00:00 (12+) [code = Medical Center DEPRESSION SCREENING (12+)] Future Scheduled 2022-05-19 FALLS RISK SCREENING [facility] Test 00:00:00 [code = FALLS RISK Medical C enter SCREENING] Future Scheduled 2022-05-[address] [facility] Test 00:00:00 (12+) [code = Medical Center DEPRESSION SCREENING (12+)] Future Scheduled 2022-05-19 FALLS RISK SCREENING [facility] Test 00:00:00 [code = FALLS RISK Medical C enter SCREENING] Future Scheduled 2022-05-[address] [facility] Test 00:00:00 (12+) [code = Medical Center DEPRESSION SCREENING (12+)] Future Scheduled 2022-05-19 FALLS RISK SCREENING [facility] Test 00:00:00 [code = FALLS RISK Medical C enter SCREENING] Future Scheduled 2022-05-[address] [facility] Test 00:00:00 (12+) [code = Medical Center DEPRESSION SCREENING (12+)] Future Scheduled 2022-05-19 FALLS RISK SCREENING [facility] Test 00:00:00 [code = FALLS RISK Medical C enter SCREENING] Future Scheduled 2022-05-[address] [facility] Test 00:00:00 (12+) [code = Medical Center DEPRESSION SCREENING (12+)] Future Scheduled 2022-05-19 FALLS RISK SCREENING [facility] Test 00:00:00 [code = FALLS RISK Medical C enter SCREENING] Future Scheduled 2022-05-[address] [facility] Test 00:00:00 (12+) [code = Medical Center DEPRESSION SCREENING (12+)] Future Scheduled 2022-05-19 FALLS RISK SCREENING [facility] Test 00:00:00 [code = FALLS RISK Medical C enter SCREENING] Future Scheduled 2022-05-16 65+ [facility]OCOCCAL [facility] Test 14:08:11 VACCINE (1 - PCV) [code = 65+ PNEUMOCOCCAL VACCINE (1 - PCV)] Future Scheduled 2022-05-16 Hepatitis C screening Me [facility] Test 14:08:11 (procedure) [code = [id number]] Future Scheduled 2022-05-16 BREAST CANCER [facility] Test 14:08:11 SCREENING [code = BREAST CANCER SCREENING] Future Scheduled 2022-05-16 COLONOSCOPY SCREENING [facility] Test 14:08:11 [code = COLONOSCOPY SCREENING] Future Scheduled 2022-05-16 SHINGLES VACCINES (1 Met [facility] Test 14:08:11 of 2) [code = SHINGLES VACCINES (1 of 2)] Future Scheduled 2022-05-16 COVID-19 VACCINE (3 - Me [facility] Test 14:08:11 Booster for Moderna series) [code = COVID-19 VACCINE (3 - Booster for Moderna series)] Future Scheduled 2022-05-16 INFLUENZA VACCINE [facility] Test 14:08:11 [code = INFLUENZA VACCINE] Future Scheduled 2022-05-16 65+ [facility]OCOCCAL [facility] Test 14:08:11 VACCINE (1 - PCV) [code = 65+ PNEUMOCOCCAL VACCINE (1 - PCV)] Future Scheduled 2022-05-16 Hepatitis C screening [facility] Test 14:08:11 (procedure) [code = [id number]] Future Scheduled 2022-05-16 BREAST CANCER [facility] Test 14:08:11 SCREENING [code = BREAST CANCER SCREENING] Future Scheduled 2022-05-16 COLONOSCOPY SCREENING [facility] Test 14:08:11 [code = COLONOSCOPY SCREENING] Future Scheduled 2022-05-16 SHINGLES VACCINES (1 [facility] Test 14:08:11 of 2) [code = SHINGLES VACCINES (1 of 2)] Future Scheduled 2022-05-16 COVID-19 VACCINE (3 - Me [facility] Test 14:08:11 Booster for Moderna series) [code = COVID-19 VACCINE (3 - Booster for Moderna series)] Future Scheduled 2022-05-16 INFLUENZA VACCINE [facility] Test 14:08:11 [code = INFLUENZA VACCINE] Future Scheduled 2022-03-22 HEPATITIS B VACCINES [facility] Test 15:58:36 (1 of 3 - 3-dose series) [code = HEPATITIS B VACCINES (1 of 3 - 3-dose series)] Future Scheduled 2022-03-22 65+ [facility] 15:58:36 VACCINE (1 - PCV) [code = 65+ PNEUMOCOCCAL VACCINE (1 - PCV)] Future Scheduled 2022-03-22 Hepatitis C screening [facility] Test 15:58:36 (procedure) [code = [id number]] Future Scheduled 2022-03-22 BREAST CANCER [facility] Test 15:58:36 SCREENING [code = BREAST CANCER SCREENING] Future Scheduled 2022-03-22 COLONOSCOPY SCREENING [facility] Test 15:58:36 [code = COLONOSCOPY SCREENING] Future Scheduled 2022-03-22 SHINGLES VACCINES (1 [facility] Test 15:58:36 of 2) [code = SHINGLES VACCINES (1 of 2)] Future Scheduled 2022-03-22 COVID-19 VACCINE (3 - Me [facility] Test 15:58:36 Booster for Moderna series) [code = COVID-19 VACCINE (3 - Booster for Moderna series)] Future Scheduled 2022-03-22 INFLUENZA VACCINE [facility] Test 15:58:36 [code = INFLUENZA VACCINE] Future Scheduled 2022-02-27 HEPATITIS B VACCINES [facility] Test 10:50:45 (1 of 3 - 3-dose series) [code = HEPATITIS B VACCINES (1 of 3 - 3-dose series)] Future Scheduled 2022-02-27 65+ [facility]AL [facility] Test 10:50:45 VACCINE (1 - PCV) [code = 65+ PNEUMOCOCCAL VACCINE (1 - PCV)] Future Scheduled 2022-02-27 Hepatitis C screening [facility] Test 10:50:45 (procedure) [code = [id number]] Future Scheduled 2022-02-27 [facility] Test 10:50:45 SCREENING [code = BREAST CANCER SCREENING] Future Scheduled 2022-02-27 COLONOSCOPY SCREENING [facility] Test 10:50:45 [code = COLONOSCOPY SCREENING] Future Scheduled 2022-02-27 SHINGLES VACCINES (1 [facility] Test 10:50:45 of 2) [code = SHINGLES VACCINES (1 of 2)] Future Scheduled 2022-02-27 COVID-19 VACCINE (3 - [facility] Test 10:50:45 Booster for Moderna series) [code = COVID-19 VACCINE (3 - Booster for Moderna series)] Future Scheduled 2022-02-27 INFLUENZA VACCINE [facility] Test 10:50:45 [code = INFLUENZA VACCINE] Future Scheduled 2022-02-27 HEPATITIS B VACCINES [facility] Test 10:50:45 (1 of 3 - 3-dose series) [code = HEPATITIS B VACCINES (1 of 3 - 3-dose series)] Future Scheduled 2022-02-27 65+ P[facility]UMOCOCCAL [facility] Test 10:50:45 VACCINE (1 - PCV) [code = 65+ PNEUMOCOCCAL VACCINE (1 - PCV)] Future Scheduled 2022-02-27 Hepatitis C screening [facility] Test 10:50:45 (procedure) [code = [id number]] Future Scheduled 2022-02-27 BREAST CANCER [facility] Test 10:50:45 SCREENING [code = BREAST CANCER SCREENING] Future Scheduled 2022-02-27 COLONOSCOPY SCREENING [facility] Test 10:50:45 [code = COLONOSCOPY SCREENING] Future Scheduled 2022-02-27 SHINGLES VACCINES (1 [facility] Test 10:50:45 of 2) [code = SHINGLES VACCINES (1 of 2)] Future Scheduled 2022-02-27 COVID-19 VACCINE (3 - Me [facility] Test 10:50:45 Booster for Moderna series) [code = COVID-19 VACCINE (3 - Booster for Moderna series)] Future Scheduled 2022-02-27 INFLU[facility]ZA VACCINE [facility] Test 10:50:45 [code = INFLUENZA VACCINE] Future Scheduled 2022-01-17 INFLUENZA VACCINE (#1) [facility] Test 00:00:00 [code = INFLUENZA Medical Ce nter VACCINE (#1)] Future Scheduled 2022-01-17 INFLUENZA VACCINE (#1) [facility]:00 [code = INFLUENZA Medical Ce nter VACCINE (#1)] Future Scheduled 2022-01-17 INFLUENZA VACCINE (#1) [facility] 00:00:00 [code = INFLUENZA Medical Ce nter VACCINE (#1)] Future Scheduled 2022-01-17 INFLUENZA VACCINE (#1) [facility] 00:00:00 [code = INFLUENZA Medical Ce nter VACCINE (#1)] Future Scheduled 2022-01-17 INFLUENZA VACCINE (#1) [facility] 00:00:00 [code = INFLUENZA Medical Ce nter VACCINE (#1)] Future Scheduled 2022-01-17 INFLUENZA VACCINE (#1) [facility] 00:00:00 [code = INFLUENZA Medical Ce nter VACCINE (#1)] Future Scheduled 2022-01-17 INFLUENZA VACCINE (#1) [facility] 00:00:00 [code = INFLUENZA Medical Ce nter VACCINE (#1)] Future Scheduled 2022-01-17 INFLUENZA VACCINE (#1) [facility] 00:00:00 [code = INFLUENZA Medical Ce nter VACCINE (#1)] Future Scheduled 2022-01-17 INFLUENZA VACCINE (#1) [facility] 00:00:00 [code = INFLUENZA Medical Ce nter VACCINE (#1)] Future Scheduled 2021-05-[address] [facility] Test 00:00:00 (12+) [code = Medical Center DEPRESSION SCREENING (12+)] Future Scheduled 2021-05-19 FALLS RISK SCREENING [facility] Test 00:00:00 [code = FALLS RISK Medical C enter SCREENING] Future Scheduled 2021-05-[address] [facility] Test 00:00:00 (12+) [code = Medical Center DEPRESSION SCREENING (12+)] Future Scheduled 2021-05-19 FALLS RISK SCREENING [facility] Test 00:00:00 [code = FALLS RISK Medical C enter SCREENING] Future Scheduled 2021-05-[address] [facility] Test 00:00:00 (12+) [code = Medical Center DEPRESSION SCREENING (12+)] Future Scheduled 2021-05-19 FALLS RISK SCREENING [facility] Test 00:00:00 [code = FALLS RISK Medical C enter SCREENING] Future Scheduled 2021-05-[address] [facility] Test 00:00:00 (12+) [code = Medical Center DEPRESSION SCREENING (12+)] Future Scheduled 2021-05-19 FALLS RISK SCREENING [facility] Test 00:00:00 [code = FALLS RISK Medical C enter SCREENING] Future Scheduled 2021-05-[address] [facility] 00:00:00 (12+) [code = Medical Center DEPRESSION SCREENING (12+)] Future Scheduled 2021-05-19 F[address]S [address] [facility]CREENING [facility] 00:00:00 [code = FALLS RISK Medical C enter SCREENING] Future Scheduled 2021-01-[address] [facility] 00:00:00 [facility] r Screening (12+) [code = Tobacco Cessation Counseling and Screening (12+)] Future Scheduled 2021-01-[address] [facility] 00:00:00 [facility] and [facility] Screening (12+) [code = Tobacco Cessation Counseling and Screening (12+)] Future Scheduled 2021-01-[address] [facility] 00:00:00 [facility] Screening (12+) [code = Tobacco Cessation Counseling and Screening (12+)] Future Scheduled 2021-01-[address] [facility] 00:00:00 [facility] Screening (12+) [code = Tobacco Cessation Counseling and Screening (12+)] Future Scheduled 2021-01-[address] [facility] 00:00:00 [facility] Screening (12+) [code = Tobacco Cessation Counseling and Screening (12+)] Future Scheduled 2021-01-[address] [facility] 00:00:00 [facility] Screening (12+) [code = Tobacco Cessation Counseling and Screening (12+)] Future Scheduled 2021-01-[address] [facility] 00:00:00 [facility] Screening (12+) [code = Tobacco Cessation Counseling and Screening (12+)] Future Scheduled 2021-01-[address] [facility] 00:00:00 [facility] Screening (12+) [code = Tobacco Cessation Counseling and Screening (12+)] Future Scheduled 2021-01-[address] [facility] 00:00:00 [facility] Screening (12+) [code = Tobacco Cessation Counseling and Screening (12+)] Future Scheduled 2021-01-[address] [facility] 00:00:00 [facility] Screening (12+) [code = Tobacco Cessation Counseling and Screening (12+)] Future Scheduled 2021-01-[address] [facility] 00:00:00 [facility] Screening (12+) [code = Tobacco Cessation Counseling and Screening (12+)] Future Scheduled 2020-05-[address] [facility] 00:00:00 WELLNESS (YEAR 2 or Medical Center FIRST YEAR if no IPPE) [code = MEDICARE ANNUAL WELLNESS (YEAR 2 or FIRST YEAR if no IPPE)] Future Scheduled 2020-05-[address] [facility] 00:00:00 WELLNESS (YEAR 2 or Medical Center FIRST YEAR if no IPPE) [code = MEDICARE ANNUAL WELLNESS (YEAR 2 or FIRST YEAR if no IPPE)] Future Scheduled 2020-05-[address] [facility] 00:00:00 WELLNESS (YEAR 2 or Medical Center FIRST YEAR if no IPPE) [code = MEDICARE ANNUAL WELLNESS (YEAR 2 or FIRST YEAR if no IPPE)] Future Scheduled 2020-05-[address] [facility] 00:00:00 WELLNESS (YEAR 2 or Medical Center FIRST YEAR if no IPPE) [code = MEDICARE ANNUAL WELLNESS (YEAR 2 or FIRST YEAR if no IPPE)] Future Scheduled 2020-05-[address] [facility] 00:00:00 WELLNESS (YEAR 2 or Medical Center FIRST YEAR if no IPPE) [code = MEDICARE ANNUAL WELLNESS (YEAR 2 or FIRST YEAR if no IPPE)] Future Scheduled 2020-05-[address] [facility] 00:00:00 WELLNESS (YEAR 2 or Medical Center FIRST YEAR if no IPPE) [code = MEDICARE ANNUAL WELLNESS (YEAR 2 or FIRST YEAR if no IPPE)] Future Scheduled 2020-05-[address] [facility] 00:00:00 WELLNESS (YEAR 2 or Medical Center FIRST YEAR if no IPPE) [code = MEDICARE ANNUAL WELLNESS (YEAR 2 or FIRST YEAR if no IPPE)] Future Scheduled 2020-05-[address] [facility] 00:00:00 WELLNESS (YEAR 2 or Medical Center FIRST YEAR if no IPPE) [code = MEDICARE ANNUAL WELLNESS (YEAR 2 or FIRST YEAR if no IPPE)] Future Scheduled 2020-05-[address] [facility] 00:00:00 WELLNESS (YEAR 2 or Medical Center FIRST YEAR if no IPPE) [code = MEDICARE ANNUAL WELLNESS (YEAR 2 or FIRST YEAR if no IPPE)] Future Scheduled 2020-05-[address] [facility] 00:00:00 WELLNESS (YEAR 2 or Medical Center FIRST YEAR if no IPPE) [code = MEDICARE ANNUAL WELLNESS (YEAR 2 or FIRST YEAR if no IPPE)] Future Scheduled 2020-05-[address] [facility] 00:00:00 WELLNESS (YEAR 2 or Medical Center FIRST YEAR if no IPPE) [code = MEDICARE ANNUAL WELLNESS (YEAR 2 or FIRST YEAR if no IPPE)] Future Scheduled 2020-05-[address] [facility] 00:00:00 WELLNESS (YEAR 2 or Medical Center FIRST YEAR if no IPPE) [code = MEDICARE ANNUAL WELLNESS (YEAR 2 or FIRST YEAR if no IPPE)] Future Scheduled 2018 PNEUMOCOCCAL 65+ YRS [facility] 00:00:00 (1 - PCV) [code = Medical Ce nter PNEUMOCOCCAL 65+ YRS (1 - PCV)] Future Scheduled 2018 PNEUMOCOCCAL 65+ YRS [facility] 00:00:00 (1 - PCV) [code = Medical Ce nter PNEUMOCOCCAL 65+ YRS (1 - PCV)] Future Scheduled 2018 PNEUMOCOCCAL 65+ YRS [facility] 00:00:00 (1 - PCV) [code = Medical Ce nter PNEUMOCOCCAL 65+ YRS (1 - PCV)] Future Scheduled 2018 PNEUMOCOCCAL 65+ YRS [facility] 00:00:00 (1 - PCV) [code = Medical Ce nter PNEUMOCOCCAL 65+ YRS (1 - PCV)] Future Scheduled 2018 PNEUMOCOCCAL 65+ YRS [facility] 00:00:00 (1 - PCV) [code = Medical Ce nter PNEUMOCOCCAL 65+ YRS (1 - PCV)] Future Scheduled 2018 PNEUMOCOCCAL 65+ YRS [facility] 00:00:00 (1 - PCV) [code = Medical Ce nter PNEUMOCOCCAL 65+ YRS (1 - PCV)] Future Scheduled 2018 PNEUMOCOCCAL 65+ YRS [facility] 00:00:00 (1 - PCV) [code = Medical Ce nter PNEUMOCOCCAL 65+ YRS (1 - PCV)] Future Scheduled 2018 PNEUMOCOCCAL 65+ YRS [facility] 00:00:00 (1 - PCV) [code = Medical Ce nter PNEUMOCOCCAL 65+ YRS (1 - PCV)] Future Scheduled 2018 PNEUMOCOCCAL 65+ YRS [facility] 00:00:00 (1 - PCV) [code = Medical Ce nter PNEUMOCOCCAL 65+ YRS (1 - PCV)] Future Scheduled 2018 PNEUMOCOCCAL 65+ YRS [facility] 00:00:00 (1 - PCV) [code = Medical Ce nter PNEUMOCOCCAL 65+ YRS (1 - PCV)] Future Scheduled 2018 PNEUMOCOCCAL 65+ YRS [facility] 00:00:00 (1 - PCV) [code = Medical Ce nter PNEUMOCOCCAL 65+ YRS (1 - PCV)] Future Scheduled 2018 PNEUMOCOCCAL 65+ YRS [facility] 00:00:00 (1 - PCV) [code = Medical Ce nter PNEUMOCOCCAL 65+ YRS (1 - PCV)] Future Scheduled 2003 SHINGLES VACCINES ([address] [facility] 00:00:00 of 2) [code = SHINGLES Medic al Center VACCINES (1 of 2)] Future Scheduled 2003 SHINGLES VACCINES ([address] [facility] 00:00:00 of 2) [code = SHINGLES Medic al Center VACCINES (1 of 2)] Future Scheduled 2003 SHINGLES VACCINES ([address] [facility] 00:00:00 of 2) [code = SHINGLES Medic al Center VACCINES (1 of 2)] Future Scheduled 2003 SHINGLES VACCINES ([address] [facility] 00:00:00 of 2) [code = SHINGLES Medic al Center VACCINES (1 of 2)] Future Scheduled 2003 SHINGLES VACCINES ([address] [facility] 00:00:00 of 2) [code = SHINGLES Medic al Center VACCINES (1 of 2)] Future Scheduled 2003 SHINGLES VACCINES ([address] [facility] 00:00:00 of 2) [code = SHINGLES Medic al Center VACCINES (1 of 2)] Future Scheduled 2003 SHINGLES VACCINES ([address] [facility] 00:00:00 of 2) [code = SHINGLES Medic al Center VACCINES (1 of 2)] Future Scheduled 2003 SHINGLES VACCINES ([address] [facility] 00:00:00 of 2) [code = SHINGLES Medic al Center VACCINES (1 of 2)] Future Scheduled 2003 SHINGLES VACCINES ([address] [facility] 00:00:00 of 2) [code = SHINGLES Medic al Center VACCINES (1 of 2)] Future Scheduled 2003 SHINGLES VACCINES ([address] [facility] 00:00:00 of 2) [code = SHINGLES Medic al Center VACCINES (1 of 2)] Future Scheduled 2003 SHINGLES VACCINES ([address] [facility] 00:00:00 of 2) [code = SHINGLES Medic al Center VACCINES (1 of 2)] Future Scheduled 2003 SHINGLES VACCINES ([address] [facility] 00:00:00 of 2) [code = SHINGLES Medic al Center VACCINES (1 of 2)] Future Scheduled 1972 DTAP/TDAP/TD VACCINES [facility] 00:00:00 (1 - Tdap) [code = Medical C enter DTAP/TDAP/TD VACCINES (1 - Tdap)] Future Scheduled 1972 DTAP/TDAP/TD VACCINES [facility] 00:00:00 (1 - Tdap) [code = Medical C enter DTAP/TDAP/TD VACCINES (1 - Tdap)] Future Scheduled 1972 DTAP/TDAP/TD VACCINES [facility] 00:00:00 (1 - Tdap) [code = Medical C enter DTAP/TDAP/TD VACCINES (1 - Tdap)] Future Scheduled 1972 DTAP/TDAP/TD VACCINES [facility] 00:00:00 (1 - Tdap) [code = Medical C enter DTAP/TDAP/TD VACCINES (1 - Tdap)] Future Scheduled 1972 DTAP/TDAP/TD VACCINES [facility] 00:00:00 (1 - Tdap) [code = Medical C enter DTAP/TDAP/TD VACCINES (1 - Tdap)] Future Scheduled 1972 DTAP/TDAP/TD VACCINES [facility] 00:00:00 (1 - Tdap) [code = Medical C enter DTAP/TDAP/TD VACCINES (1 - Tdap)] Future Scheduled 1972 DTAP/TDAP/TD VACCINES [facility] 00:00:00 (1 - Tdap) [code = Medical C enter DTAP/TDAP/TD VACCINES (1 - Tdap)] Future Scheduled 1972 DTAP/TDAP/TD VACCINES [facility] 00:00:00 (1 - Tdap) [code = Medical C enter DTAP/TDAP/TD VACCINES (1 - Tdap)] Future Scheduled 1972 DTAP/TDAP/TD VACCINES [facility] 00:00:00 (1 - Tdap) [code = Medical C enter DTAP/TDAP/TD VACCINES (1 - Tdap)] Future Scheduled 1972 DTAP/TDAP/TD VACCINES [facility] 00:00:00 (1 - Tdap) [code = Medical C enter DTAP/TDAP/TD VACCINES (1 - Tdap)] Future Scheduled 1972 DTAP/TDAP/TD VACCINES [facility] 00:00:00 (1 - Tdap) [code = Medical C enter DTAP/TDAP/TD VACCINES (1 - Tdap)] Future Scheduled 1972 DTAP/TDAP/TD VACCINES [facility] 00:00:00 (1 - Tdap) [code = Medical C enter DTAP/TDAP/TD VACCINES (1 - Tdap)] Future Scheduled 1971 HEPATITIS C SCREENING [facility]:00 [code = HEPATITIS C Medical Center SCREENING] Future Scheduled 1971 HEPATITIS C [facility]CRE[facility]ING [facility]:00:00 [code = HEPATITIS C Medical Center SCREENING] Future Scheduled 1971 HEPATITIS C [facility]CRE[facility]ING [facility]:00:00 [code = HEPATITIS C Medical Center SCREENING] Future Scheduled 1971 HEPATITIS C [facility]ING [facility]:00:00 [code = HEPATITIS C Medical Center SCREENING] Future Scheduled 1971 HEPATITIS C [facility]CRE[facility]ING [facility] 00:00:00 [code = HEPATITIS C Medical Center SCREENING] Future Scheduled 1971 HEPATITIS C [facility]ING [facility] 00:00:00 [code = HEPATITIS C Medical Center SCREENING] Future Scheduled 1971 HEPATITIS C [facility]CRE[facility]ING [facility] 00:00:00 [code = HEPATITIS C Medical Center SCREENING] Future Scheduled 1971 HEPATITIS C [facility]CRE[facility]ING [facility] 00:00:00 [code = HEPATITIS C Medical Center SCREENING] Future Scheduled 1971 HEPATITIS C [facility]ING [facility] 00:00:00 [code = HEPATITIS C Medical Center SCREENING] Future Scheduled 1971 HEPATITIS C [facility]ING [facility] 00:00:00 [code = HEPATITIS C Medical Center SCREENING] Future Scheduled 1971 HEPATITIS C [facility]ING [facility] 00:00:00 [code = HEPATITIS C Medical Center SCREENING] Future Scheduled 1971 HE[facility]ITIS C [facility]CRE[facility]ING [facility] 00:00:00 [code = HEPATITIS C Medical Center SCREENING] Future Scheduled 1953 COVID-19 VACCINE (#1) [facility]:00 [code = COVID-[address] VACCINE (#1)] Future Scheduled 1953 COVID-19 VACCINE (#1) [facility]:00:00 [code = COVID-[address] VACCINE (#1)] Future Scheduled 1953 COVID-19 VACCINE (#1) [facility] 00:00:00 [code = COVID-[address] VACCINE (#1)] Future Scheduled 1953 COVID-19 VACCINE (#1) [facility] 00:00:00 [code = COVID-[address] VACCINE (#1)] Future Scheduled 1953 COVID-19 VACCINE (#1) [facility] 00:00:00 [code = COVID-[address] VACCINE (#1)] Future Scheduled 1953 COVID-19 VACCINE (#1) [facility] 00:00:00 [code = COVID-[address] VACCINE (#1)] Future Scheduled 1953 COVID-19 VACCINE (#1) [facility] 00:00:00 [code = COVID-[address] VACCINE (#1)] Future Scheduled 1953 COVID-19 VACCINE (#1) [facility] 00:00:00 [code = COVID-[address] VACCINE (#1)] Future Scheduled 1953 COVID-19 VACCINE (#1) [facility] 00:00:00 [code = COVID-[address] VACCINE (#1)] Future Scheduled 1953 COVID-19 VACCINE (#1) [facility] 00:00:00 [code = COVID-[address] VACCINE (#1)] Future Scheduled 1953 COVID-19 VACCINE (#1) [facility] 00:00:00 [code = COVID-[address] VACCINE (#1)] Future Scheduled 1953 COVID-19 VACCINE (#1) [facility] 00:00:00 [code = COVID-[address] VACCINE (#1)] Future Scheduled [address] [facility]00 [facility] breast (procedure) [code = [id number]] Future Scheduled [address] [facility] 00:[facility]:00 [facility] breast (procedure) [code = 934124302] Future Scheduled [address] [facility] 00:00:00 (combo) [code = CT Medical C enter Colonography (combo)] Future Scheduled [address] [facility] 00:[facility]:00 [facility] colon (procedure) [code = [id number]] Future Scheduled [address] [facility] 00:00:00 [facility] colon (procedure) [code = 070325869] Future Scheduled 1953 DXA SCAN [code = DXA [facility] 00:00:00 SCAN] [facility] Future Scheduled [address] [facility] 00:00:00 (combo) [code = CT Medical C enter Colonography (combo)] Future Scheduled [address] [facility] 00:00:00 [facility] colon (procedure) [code = 542001741] Future Scheduled [address] [facility] 00:00:00 [facility] colon (procedure) [code = 863678483] Future Scheduled 1953 Sigmoidoscopy [code = [facility] S[facility]] [facility] Future Scheduled [address] [facility] 00:[facility]:00 [facility] colon (procedure) [code = 773095881] Future Scheduled [address] [facility] 00:00:00 [facility] breast (procedure) [code = 577685763] Future Scheduled [address] [facility] 00:00:00 [facility] colon (procedure) [code = 219305990] Future Scheduled [address] [facility] 00:00:00 (combo) [code = CT Medical C enter Colonography (combo)] Future Scheduled [address] [facility] 00:00:00 [facility] colon (procedure) [code = 262946115] Future Scheduled [address] [facility] 00:00:00 [facility] colon (procedure) [code = 095742402] Future Scheduled 1953 DXA SCAN [code = DXA [facility] 00:00:00 SCAN] [facility] Future Scheduled [address] [facility] 00:00:00 [facility] colon (procedure) [code = 560005504] Future Scheduled [address] [facility] 00:00:00 malignant [facility] colon (procedure) [code = 598569253] Future Scheduled 1953 Sigmoidoscopy [facility]code = [facility] D[facility]AN [code = DXA [facility] 00:00:00 SCAN] [facility] Future Scheduled [address] [facility] 00:00:00 [facility] colon (procedure) [code = 285408854] Future Scheduled [address] [facility] 00:00:00 [facility] breast (procedure) [code = 337488469] Future Scheduled [address] [facility] 00:00:00 (combo) [code = CT Medical C enter Colonography (combo)] Future Scheduled [address] [facility] 00:00:00 [facility] colon (procedure) [code = 767631520] Future Scheduled [address] [facility] 00:00:00 malignant [facility] colon (procedure) [code = 088651066] Future Scheduled 1953 DXA SCAN [code = DXA [facility] 00:00:00 SCAN] [facility] Future Scheduled [address] [facility] 00:00:00 [facility] colon (procedure) [code = 781213771] Future Scheduled [address] [facility] 00:00:00 malignant [facility] colon (procedure) [code = 574119432] Future Scheduled [address] [facility] 00:00:00 [facility] of [facility] colon (procedure) [code = 095054748] Future Scheduled 1953 Sigmoidoscopy [code = [facility] [code = [facility] Sigmoidoscopy] [facility] Future Scheduled [address] [facility] 00:00:00 [facility] breast (procedure) [code = 447640161] Future Scheduled [address] [facility] 00:00:00 (combo) [code = CT Medical C enter Colonography (combo)] Future Scheduled [address] [facility] 00:00:00 [facility] colon (procedure) [code = 123541317] Future Scheduled [address] [facility] 00:00:00 [facility] colon (procedure) [code = 928975135] Future Scheduled 1953 DXA SCAN [code = DXA [facility] 00:00:00 SCAN] [facility] Future Scheduled [address] [facility] 00:00:00 [facility] colon (procedure) [code = 229994255] Future Scheduled [address] [facility] 00:00:00 [facility] colon (procedure) [code = 427597551] Future Scheduled 1953 Sigmoidoscopy [code = [facility] S[facility]] [facility] Future Scheduled [address] [facility] 00:00:00 [facility] breast (procedure) [code = 669860188] Future Scheduled [address] [facility] 00:00:00 (combo) [code = CT Medical C enter Colonography (combo)] Future Scheduled [address] [facility] 00:00:00 [facility] colon (procedure) [code = 301347698] Future Scheduled [address] [facility] 00:00:00 malignant ne[facility] of [facility] colon (procedure) [code = 894312094] Future Scheduled 1953 DXA SCAN [code = DXA [facility] 00:00:00 SCAN] [facility] Future Scheduled [address] [facility] 00:00:00 malignant [facility] of [facility] colon (procedure) [code = 001003809] Future Scheduled [address] [facility] 00:00:00 malignant ne[facility] of [facility] colon (procedure) [code = 145893689] Future Scheduled 1953 Sigmoidoscopy [code = [facility] S[facility]] [facility] Future Scheduled [address] [facility] 00:00:00 [facility] breast (procedure) [code = 299231277] Future Scheduled [address] [facility] 00:00:00 (combo) [code = CT Medical C enter Colonography (combo)] Future Scheduled [address] [facility] 00:00:00 [facility] colon (procedure) [code = 242752841] Future Scheduled [address] [facility] 00:00:00 malignant ne[facility] of [facility] colon (procedure) [code = 515082870] Future Scheduled 1953 DXA SCAN [code = DXA [facility] 00:00:00 SCAN] [facility] Future Scheduled [address] [facility] 00:00:00 malignant ne[facility] colon (procedure) [code = 624369531] Future Scheduled [address] [facility] 00:00:00 malignant [facility]oplasm of [facility] colon (procedure) [code = 545967435] Future Scheduled 1953 Sigmoidoscopy [code = [facility] S[facility]] [facility] Future Scheduled [address] [facility] 00:00:00 malignant [facility] of [facility] breast (procedure) [code = 797356667] Future Scheduled [address] [facility] 00:00:00 (combo) [code = CT Medical C enter Colonography (combo)] Future Scheduled [address] [facility] 00:00:00 [facility] colon (procedure) [code = 627011475] Future Scheduled [address] [facility] 00:00:00 [facility] colon (procedure) [code = 049883731] Future Scheduled 1953 DXA SCAN [code = DXA [facility] 00:00:00 SCAN] [facility] Future Scheduled [address] [facility] 00:00:00 [facility] colon (procedure) [code = 277361524] Future Scheduled [address] [facility] 00:00:00 [facility] colon (procedure) [code = 326856192] Future Scheduled 1953 Sigmoidoscopy [code = [facility] [address] [facility] 00:00:00 [facility] breast (procedure) [code = 030389102] Future Scheduled [address] [facility] 00:00:00 (combo) [code = CT Medical C enter Colonography (combo)] Future Scheduled [address] [facility] 00:00:00 [facility] colon (procedure) [code = 646595145] Future Scheduled [address] [facility] 00:00:00 [facility] colon (procedure) [code = 287369797] Future Scheduled 1953 DXA SCAN [code = DXA [facility] 00:00:00 SCAN] [facility] Future Scheduled [address] [facility] 00:00:00 [facility] colon (procedure) [code = 252920442] Future Scheduled [address] [facility] 00:00:00 malignant [facility] colon (procedure) [code = 211731398] Future Scheduled 1953 Sigmoidoscopy [code = [facility] [address] [facility] 00:00:00 [facility] breast (procedure) [code = 987377773] Future Scheduled [address] [facility] 00:00:00 (combo) [code = CT Medical C enter Colonography (combo)] Future Scheduled [address] [facility] 00:00:00 [facility] colon (procedure) [code = 608845137] Future Scheduled [address] [facility] 00:00:00 [facility] colon (procedure) [code = 021698167] Future Scheduled 1953 DXA SCAN [code = DXA [facility] 00:00:00 SCAN] [facility] Future Scheduled [address] [facility] 00:00:00 [facility] colon (procedure) [code = 775765740] Future Scheduled [address] [facility] 00:00:00 [facility] colon (procedure) [code = 843150813] Future Scheduled 1953 Sigmoidoscopy [code = [facility] S[facility]] [facility] Future Scheduled [address] [facility] 00:00:00 [facility] breast (procedure) [code = 456515495] Future Scheduled [address] [facility] 00:00:00 (combo) [code = CT Medical C enter Colonography (combo)] Future Scheduled [address] [facility] 00:00:00 [facility] colon (procedure) [code = 775212889] Future Scheduled [address] [facility] 00:00:00 [facility] colon (procedure) [code = 943412323] Future Scheduled 1953 DXA SCAN [code = DXA [facility] 00:00:00 SCAN] [facility] Future Scheduled [address] [facility] 00:00:00 [facility] colon (procedure) [code = 691275523] Future Scheduled [address] [facility] 00:00:00 [facility] colon (procedure) [code = 791130979] Future Scheduled 1953 Sigmoidoscopy [code = [facility] Sched[facility] [address] [facility] 00:00:00 (combo) [code = CT Medical C enter Colonography (combo)] Future Scheduled [address] [facility] 00:00:00 [facility] colon (procedure) [code = 455207890] Future Scheduled [address] [facility] Test 00:00:00 [facility] colon (procedure) [code = 328575540] Future Scheduled 1955 DXA SCAN [code = DXA [facility] Test 00:00:00 SCAN] [facility] Future Scheduled [address] [facility] Test 00:00:00 [facility] colon (procedure) [code = 022171335] Future Scheduled [address] [facility] Test 00:00:00 malignant [facility] colon (procedure) [code = 513552592] Future Scheduled 1955 Sigmoid[facility] [address] [facility] Test 00:00:00 malignant ne[facility] breast (procedure) [code = 474179750] Future Scheduled PNEUMOVAX >=65 [facility] llege of Test (PPSV23) [code = Medicine PNEUMOVAX >=65 (PPSV23)] Future Scheduled FLU VACCINE > 6 MONTHS B [facility] of Test [code = FLU VACCINE > Medici ne 6 MONTHS] Future Scheduled COLON CANCER [facility] ege of Test SCREENING: COLONOSCOPY Medic ine [code = COLON CANCER SCREENING: COLONOSCOPY] Future Scheduled MAMMOGRAM ANNUAL [code B [facility] of Test = MAMMOGRAM ANNUAL] Medicine Future Scheduled TETANUS SHOT (ADULT) [facility] of Test [code = TETANUS SHOT Medicin e (ADULT)] Future Scheduled HEPATITIS C SCREENING [facility] of Test [code = HEPATITIS C Medicine SCREENING] Future Scheduled ZOSTER VACCINE (1 of [facility] of Test 2) [code = ZOSTER Medicine VACCINE (1 of 2)] Future Scheduled MEDICARE AWV (Initial) B [facility] of Test [code = MEDICARE AWV Medicin e (Initial)] Future Scheduled FALL SCREEN [code = [facility] or Guadalupe Guerra of Test FALL SCREEN] Medicine Future Scheduled OSTEOPOROSIS SCREENING B [facility] of Test [code = OSTEOPOROSIS Medicin e SCREENING] Future Scheduled PNEUMOVAX >=65 [facility] llege of Test (PPSV23) [code = Medicine PNEUMOVAX >=65 (PPSV23)] Future Scheduled FLU VACCINE > 6 MONTHS B [facility] of Test [code = FLU VACCINE > Medici ne 6 MONTHS] Future Scheduled COLON CANCER [facility] ege of Test SCREENING: COLONOSCOPY Medic ine [code = COLON CANCER SCREENING: COLONOSCOPY] Future Scheduled MAMMOGRAM ANNUAL [code B [facility] of Test = MAMMOGRAM ANNUAL] Medicine Future Scheduled TETANUS SHOT (ADULT) [facility] of Test [code = TETANUS SHOT Medicin e (ADULT)] Future Scheduled HEPATITIS C SCREENING [facility] of Test [code = HEPATITIS C Medicine SCREENING] Future Scheduled ZOSTER VACCINE (1 of [facility] of Test 2) [code = ZOSTER Medicine VACCINE (1 of 2)] Future Scheduled MEDICARE AWV (Initial) B [facility] of Test [code = MEDICARE AWV Medicin e (Initial)] Future Scheduled FALL SCREEN [code = [facility] of Test FALL SCREEN] Medicine Future Scheduled OSTEOPOROSIS SCREENING B [facility] of Test [code = OSTEOPOROSIS Medicin e SCREENING] Future Scheduled PNEUMOVAX >=65 [facility] llege of Test (PPSV23) [code = Medicine PNEUMOVAX >=65 (PPSV23)] Future Scheduled FLU VACCINE > 6 MONTHS B [facility] of Test [code = FLU VACCINE > Medici ne 6 MONTHS] Future Scheduled COLON CANCER [facility] Ian ege of Test SCREENING: COLONOSCOPY Medic ine [code = COLON CANCER SCREENING: COLONOSCOPY] Future Scheduled MAMMOGRAM ANNUAL [code B [facility] of Test = MAMMOGRAM ANNUAL] Medicine Future Scheduled TETANUS SHOT (ADULT) [facility] of Test [code = TETANUS SHOT Medicin e (ADULT)] Future Scheduled HEPATITIS C SCREENING [facility] or [facility] of Test [code = HEPATITIS C Medicine SCREENING] Future Scheduled [facility]Initial[facility] [code = MEDICARE AWV Medicin e (Initial)] Future Scheduled FALL SCREEN [code = [facility] or [facility] of Test FALL SCREEN] Medicine Future Scheduled OSTEOPOROSIS SCREENING B [facility] of Test [code = OSTEOPOROSIS Medicin e SCREENING] Future Scheduled PNEUMOVAX >=65 [facility] l[facility] of Test (PPSV23) [code = Medicine PNEUMOVAX >=65 (PPSV23)] Future Scheduled PREVNAR >= 65 (PCV13) [facility] Test [code = PREVNAR >= 65 Medici ne (PCV13)] Future Scheduled FLU VACCINE > [facility] MON[facility] [code = FLU VACCINE > Medici ne 6 MONTHS] Future Scheduled COLON CANCER [facility] ege of Test SCREENING: COLONOSCOPY Medic ine [code = COLON CANCER SCREENING: COLONOSCOPY] Future Scheduled MAMMOGRAM ANNUAL [code B [facility] of Test = MAMMOGRAM ANNUAL] Medicine Future Scheduled TETANUS SHOT (ADULT) [facility] of Test [code = TETANUS SHOT Medicin e (ADULT)] Future Scheduled HEPATITIS C SCREENING Ba [facility] of Test [code = HEPATITIS C Medicine SCREENING] Future Scheduled MEDICARE AWV (Initial) B [facility] of Test [code = MEDICARE AWV Medicin e (Initial)] Future Scheduled FALL SCREEN [code = [facility] or [facility] of Test FALL SCREEN] Medicine Future Scheduled OSTEOPOROSIS SCREENING B [facility] of Test [code = OSTEOPOROSIS Medicin e SCREENING] Future Scheduled PNEUMOVAX >=65 [facility] of Test (PPSV23) [code = Medicine PNEUMOVAX >=65 (PPSV23)] Future Scheduled PREVNAR >= 65 (PCV13) Ba or [facility] of Test [code = PREVNAR >= 65 Medici ne (PCV13)] Future Scheduled FLU VACCINE > 6 MONTHS B [facility] of Test [code = FLU VACCINE > Medici ne 6 MONTHS] Future Scheduled COLON CANCER [facility] Ian ege of Test SCREENING: COLONOSCOPY Medic ine [code = COLON CANCER SCREENING: COLONOSCOPY] Future Scheduled MAMMOGRAM ANNUAL [code [facility] = MAMMOGRAM ANNUAL] Medicine Future Scheduled TETANUS SHOT (ADULT) [facility] of Test [code = TETANUS SHOT Medicin e (ADULT)] Future Scheduled HEPATITIS C SCREENING [facility] [employer] [facility] [code = HEPATITIS C Medicine SCREENING] Future Scheduled ZOSTER VACCINE (1 of [facility] of Test 2) [code = ZOSTER Medicine VACCINE (1 of 2)] Future Scheduled MEDICARE AWV (Initial) B [facility] of Test [code = MEDICARE AWV Medicin e (Initial)] Future Scheduled FALL SCREEN [code = [facility] or [facility] of Test FALL SCREEN] Medicine Future Scheduled OSTEOPOROSIS SCREENING B [facility] of Test [code = OSTEOPOROSIS Medicin e SCREENING] Future Scheduled PNEUMOVAX >=65 [facility] of Test (PPSV23) [code = Medicine PNEUMOVAX >=65 (PPSV23)] Future Scheduled FLU VACCINE > 6 MONTHS B [facility] of Test [code = FLU VACCINE > Medici ne 6 MONTHS] Future Scheduled COLON CANCER [facility] ege of Test SCREENING: COLONOSCOPY Medic ine [code = COLON CANCER SCREENING: COLONOSCOPY] Future Scheduled MAMMOGRAM ANNUAL [code B [facility] of Test = MAMMOGRAM ANNUAL] Medicine Future Scheduled TETANUS SHOT (ADULT) [facility] of Test [code = TETANUS SHOT Medicin e (ADULT)] Future Scheduled HEPATITIS C SCREENING Ba [facility] of Test [code = HEPATITIS C Medicine SCREENING] Future Scheduled ZOSTER VACCINE (1 of [facility] of Test 2) [code = ZOSTER Medicine VACCINE (1 of 2)] Future Scheduled MEDICARE AWV (Initial) B [facility] of Test [code = MEDICARE AWV Medicin e (Initial)] Future Scheduled FALL SCREEN [code = [facility] or [facility] of Test FALL SCREEN] Medicine Future Scheduled OSTEOPOROSIS SCREENING B [facility] of Test [code = OSTEOPOROSIS Medicin e SCREENING] Encounters Start End Encounter Admission Attending Care Care Encounter Source Date/Time Date/Time Type Type Clinicians Facility Department ID 2021-02-21 Outpatient RORY [facility] Surgery [id number] [facility] 01:16:33 NOEMÍ 2022-09-19 2022-09-19 Travel 1.2.840.1 1.2.122.981 2557 [id number] Methodi 00:00:00 00:00:[address] 3.430.2.7 0.2.7.3.698 Ho spita .3.246917 084.8 l .8 2022-08-29 2022-08-29 Travel 1.2.840.1 1.2.032.203 9464 325031 Methodi 00:00:00 00:00:[address] 3.430.2.7 0.2.7.3.698 Ho spita .3.560693 084.8 l .8 2022-08-28 2022-08-28 Outpatient [facility]NY [facility]ILS [facility] [id number] [facility] 07:39:41 09:12:55 JANNETTE tirado of Medicin e 2022-07-22 2022-07-22 Treatment Milton Acostanavarro Ramirez 1.2.840.1 [id number] Methodi 10:30:00 14:14:17 [address] 37438.1.[address] 3.430.2.7 Hospit a .3.908321 l .8 2022-07-22 2022-07-22 Outpatient DAVE, [facility] [id number] [address] [place] 00:00:00 00:00:[address] 2022-07-22 2022-07-22 Travel 1.2.840.1 1.2.186.647 4955 [id number] Methodi 00:00:00 00:00:[address] 3.430.2.7 0.2.7.3.698 Ho spita .3.891760 084.8 l .8 2022-07-15 2022-07-15 Travel 1.2.840.1 1.2.204.941 4382 087773 Methodi 00:00:00 00:00:[address] 3.430.2.7 0.2.7.3.698 Ho spita .3.451406 084.8 l .8 2022-06-28 2022-06-28 Documentat Ara, 1.2.840.1 [id number] Methodi 00:00:00 00:00:[address].1.[address] 3.430.2.7 Hospit a .3.169294 l .8 2022-06-27 2022-06-27 Office Ara, 1.2.840.1 [id number] 3258 Methodi 15:00:00 15:41:51 Visit Salvador Schwab 31914.1.[address] 3.430.2.7 Hospit a .3.171502 l .8 2022-06-27 2022-06-27 Outpatient ARA, [facility] [id number] [place] 00:00:00 00:00:[address] SAL[address]OR [address] 2022-06-27 2022-06-27 Travel 1.2.840.1 1.2.387.917 9766 787465 Methodi 00:00:00 00:00:[address] 3.430.2.7 0.2.7.3.698 Ho spita .3.326897 084.8 l .8 2022-06-20 2022-06-20 Outpatient ANNY SALAMANCA [facility] [id number] [facility] 08:12:38 10:19:28 SANAZ Kelly Medicin eber 2022-06-10 2022-06-16 Office Alonzo, 1.2.840.1 [id number] 6029 Methodi 14:00:00 08:26:46 Visit Jeffery 62316.1.[address] 3.430.2.7 Hospit a .3.776711 l .8 2022-06-12 2022-06-12 Orders Bravo, 1.2.840.1 [id number] 5784 Methodi 00:00:00 00:00:00 Only Troy 62716.1.[address] 3.430.2.7 Hospit a .3.798265 l .8 2022-06-12 2022-06-12 Telephone Evelina, 1.2.840.1 [id number] 2100 204671 Methodi 00:00:00 00:00:[address] Dewi 3.430.2.7 Hospit a Leonel .3.627169 l .8 2022-06-11 2022-06-11 Refill Alonzo, 1.2.840.1 [id number] 614437 1830 Methodi 00:00:00 00:00:[address] 3.430.2.7 Hospit a .3.287731 l .8 2022-06-10 2022-06-10 Outpatient ALONZO, [facility] [id number] [address] [place] [address] 00:00:00 00:00:[address] 2022-06-10 2022-06-10 Refill Alonzo, 1.2.840.1 [id number] 2529 Methodi 00:00:00 00:00:[address] 3.430.2.7 Hospit a .3.297433 l .8 2022-06-10 2022-06-10 Travel 1.2.840.1 1.2.451.377 2556 985763 Methodi 00:00:00 00:00:[address] 3.430.2.7 0.2.7.3.698 Ho spita .3.748993 084.8 l .8 2022-05-31 2022-05-31 Outpatient JAQUI [facility] [id number] [address] [place] [address] 08:00:16 11:07:29 JANNETTE tirado of Medicin e 2022-05-27 2022-05-27 Treatment Elif Acosta 1.2.840.1 [id number] Methodi 14:30:00 15:31:08 Selene Velasquez Brigette 63192.1.[address] 3.430.2.7 Hospit a .3.920793 l .8 2022-05-27 2022-05-27 Treatment Elif Acosta 1.2.840.1 [id number] Methodi 14:30:00 15:31:08 Selene Velasquez Brigette 34002.1.[address] 3.430.2.7 Hospit a .3.224590 l .8 2022-05-27 2022-05-27 Travel 1.2.840.1 1.2.251.737 6182 441717 Methodi 00:00:00 00:00:[address] 3.430.2.7 0.2.7.3.698 Ho spita .3.847780 084.8 l .8 2022-05-27 2022-05-27 Orders Antosh, 1.2.840.1 [id number] 990987 5656 Methodi 00:00:00 00:00:00 Only Devon 73018.1.[address] Dewi 3.430.2.7 Hospit a Leonel .3.018083 l .8 2022-05-27 2022-05-27 Travel 1.2.840.1 1.2.856.514 5244 260149 Methodi 00:00:00 00:00:[address] 3.430.2.7 0.2.7.3.698 Ho spita .3.881108 084.8 l .8 2022-05-27 2022-05-27 [facility] 1.2.840.1 [id number] 293612 4104 Methodi 00:00:00 00:00:00 Only Devon 49618.1.[address] Dewi 3.430.2.7 Hospit a Leonel .3.676090 l .8 2022-05-16 2022-05-16 Travel 1.2.840.1 1.2.420.030 4075 534317 Methodi 00:00:00 00:00:[address] 3.430.2.7 0.2.7.3.698 Ho spita .3.996097 084.8 l .8 2022-05-16 2022-05-16 Travel 1.2.840.1 1.2.254.298 6048 413894 Methodi 00:00:00 00:00:[address] 3.430.2.7 0.2.7.3.698 Ho spita .3.928129 084.8 l .8 2022-05-07 2022-05-07 Office Dave Lemus 1.2.840.1 [id number] 325 [id number] Methodi 10:15:00 11:55:22 Visit Irving 63782.1.[address] 3.430.2.7 Hospit a .3.456139 l .8 2022-05-07 2022-05-07 Office Dave Lemus 1.2.840.1 [id number] 437 7454230 Methodi 10:15:00 11:55:22 Visit Irving 44935.1.[address] 3.430.2.7 Hospit a .3.193186 l .8 2022-05-02 2022-05-02 Travel 1.2.840.1 1.2.146.358 1142 684772 Methodi 00:00:00 00:00:[address] 3.430.2.7 0.2.7.3.698 Ho spita .3.794656 084.8 l .8 2022-05-02 2022-05-02 Travel 1.2.840.1 1.2.618.428 5900 764270 Methodi 00:00:00 00:00:[address] 3.430.2.7 0.2.7.3.698 Ho spita .3.610089 084.8 l .8 2022-05-01 2022-05-01 Outpatient ANNY NAILS [facility] [id number] [address] [place] [address] 08:11:59 08:38:42 JANNETTE White ge of Medicin e 2022-04-02 2022-04-02 Outpatient FOG_A_Provi AOSM AO 581 02406-07 Jhoana 00:00:00 00:00:00 tami 169506 [facility] 2022-04-02 2022-04-02 Outpatient FOG_A_Provi AOSM AOSM 581 0241- Jhoana 00:00:00 00:00:00 tami 390642 [facility] Medicin e 2022-03-29 2022-03-29 Office Stanton, 1.2.840.1 [id number] 082109 7810 Methodi 10:30:00 11:22:10 Visit Janie 46565.1.[address] 3.430.2.7 Hospit a .3.964660 l .8 2022-03-29 2022-03-29 Office Stanton, 1.2.840.1 [id number] [id number] 1780 Methodi 10:30:00 11:22:10 Visit Janie 58204.1.[address] 3.430.2.7 Hospit a .3.539611 l .8 2022-03-29 2022-03-29 Office Dave Lemus 1.2.840.1 [id number] 215 3358901 Methodi 11:00:00 11:21:56 Visit Irving [address]5054.1.[address] 3.430.2.7 Hospit a .3.929134 l .8 2022-03-29 2022-03-29 Office Dave Lemus 1.2.840.1 [id number] 916 9095857 Methodi 11:00:00 11:21:56 Visit Irving [address]2890.1.[address] 3.430.2.7 Hospit a .3.867066 l .8 2022-03-29 2022-03-29 Travel 1.2.840.1 1.2.236.262 9437 735526 Methodi 00:00:00 00:00:[address] 3.430.2.7 0.2.7.3.698 Ho spita .3.377493 084.8 l .8 2022-03-29 2022-03-29 Travel 1.2.840.1 1.2.413.984 5519 138970 Methodi 00:00:00 00:00:[address] 3.430.2.7 0.2.7.3.698 Ho spita .3.110317 084.8 l .8 2022-03-25 2022-03-25 Outpatient ANNY NAILS [facility] [id number] [facility] 09:38:00 10:32:25 JANNETTE Colle ge of Medicin e 2022-03-25 2022-03-25 Outpatient FOG_A_Provi AOSM AOSM 581 0241-20 Jhoana 00:00:00 00:00:00 tami 312598 Orthop e [facility] Sports Medicin e 2022-03-06 2022-03-06 Outpatient JAZZMINE, [facility] [id number] [facility] 13:49:18 14:42:32 [facility] [employer] of Medicin e 2022-02-27 2022-02-27 Outpatient JAZZMINE, [facility] [id number] [facility] 16:16:31 17:09:45 [employer] [employer] [facility] Medicin e 2022-02-22 2022-02-22 Outpatient JAQUI, [facility] [id number] 02 [facility] 12:53:26 15:26:33 JANNETTE Colle ge of Medicin e 2022-02-20 2022-02-20 Outpatient HUGHGeri, [facility] [id number] 47 [facility] 14:23:08 15:28:12 JANNETTE Colle ge of Medicin e 2022-02-15 2022-02-15 Travel 1.2.840.1 1.2.410.544 3105 699059 Methodi 00:00:00 00:00:[address] 3.430.2.7 0.2.7.3.698 Ho spita .3.469369 084.8 l .8 2022-02-15 2022-02-15 Travel 1.2.840.1 1.2.518.430 0001 947618 Methodi 00:00:00 00:00:[address] 3.430.2.7 0.2.7.3.698 Ho spita .3.090310 084.8 l .8 2022-01-31 2022-01-31 Outpatient [facility] [id number] [address] [place] 00:00:00 00:00:[address] 2022-01-31 2022-01-31 Travel 1.2.840.1 1.2.537.440 6811 527505 Methodi 00:00:00 00:00:[address] 3.430.2.7 0.2.7.3.698 Ho spita .3.567413 084.8 l .8 2022-01-31 2022-01-31 Travel 1.2.840.1 1.2.326.447 0241 227916 Methodi 00:00:00 00:00:[address] 3.430.2.7 0.2.7.3.698 Ho spita .3.033770 084.8 l .8 2022-01-29 2022-01-29 Travel 1.2.840.1 1.2.186.951 9746 151621 Methodi 00:00:00 00:00:[address] 3.430.2.7 0.2.7.3.698 Ho spita .3.640794 084.8 l .8 2022-01-29 2022-01-29 Travel 1.2.840.1 1.2.341.315 5685 364883 Methodi 00:00:00 00:00:[address] 3.430.2.7 0.2.7.3.698 Ho spita .3.365544 084.8 l .8 2022-01-04 2022-01-04 [facility] [id number] [address] [place] 00:00:00 00:00:[address] 2022-01-04 2022-01-04 Travel 1.2.840.1 1.2.772.713 8809 646965 Methodi 00:00:00 00:00:[address] 3.430.2.7 0.2.7.3.698 Ho spita .3.523513 084.8 l .8 2022-01-04 2022-01-04 Travel 1.2.840.1 1.2.506.942 7252 385990 Methodi 00:00:00 00:00:[address] 3.430.2.7 0.2.7.3.698 Ho spita .3.185577 084.8 l .8 2022-01-02 2022-01-02 Travel 1.2.840.1 1.2.298.416 0971 217665 Methodi 00:00:00 00:00:[address] 3.430.2.7 0.2.7.3.698 Ho spita .3.047402 084.8 l .8 2022-01-02 2022-01-02 Travel 1.2.840.1 1.2.283.408 6312 908073 Methodi 00:00:00 00:00:[address] 3.430.2.7 0.2.7.3.698 Ho spita .3.607595 084.8 l .8 2021-12-10 2021-12-10 Treatment Devon Hoyt ll 1.2.840.1 [id number] Methodi 09:30:00 11:01:02 Selene Velasquez Brigette 13583.1.[address] 3.430.2.7 Hospit a .3.962494 l .8 2021-12-10 2021-12-10 Treatment Devon Hoyt ll 1.2.840.1 [id number] Methodi 09:30:00 11:01:02 Selene Velasquez Brigette [address]6400.1.[address] 3.430.2.7 Hospit a .3.575075 l .8 2021-12-10 2021-12-10 Travel 1.2.840.1 1.2.442.368 0200 334457 Methodi 00:00:00 00:00:[address] 3.430.2.7 0.2.7.3.698 Ho spita .3.040537 084.8 l .8 2021-12-10 2021-12-10 Travel 1.2.840.1 1.2.598.260 4309 071492 Methodi 00:00:00 00:00:[address] 3.430.2.7 0.2.7.3.698 Ho spita .3.472331 084.8 l .8 2021-11-26 2021-11-26 Evaluation Devon Hoyt all 1.2.840.1 [id number] Methodi 09:30:00 16:37:38 Selene Velasquez Brigette 51292.1.[address] 3.430.2.7 Hospit a .3.533739 l .8 2021-11-26 2021-11-26 Evaluation Devon Hoyt all 1.2.840.1 [id number] Methodi 09:30:00 16:37:38 Selene Velasquez Brigette [address]497.1.[address] 3.430.2.7 Hospit a .3.345844 l .8 2021-11-26 2021-11-26 Office Alonzo, 1.2.840.1 [id number] 696549 5394 Methodi 15:10:00 15:20:00 Visit Jeffery 67541.1.[address] 3.430.2.7 Hospit a .3.397691 l .8 2021-11-26 2021-11-26 Office Alonzo, 1.2.840.1 [id number] 714388 4913 Methodi 15:10:00 15:20:00 Visit Jeffery 11160.1.[address] 3.430.2.7 Hospit a .3.679952 l .8 2021-11-26 2021-11-26 Plan of 1.2.840.1 [id number] 750966 2737 Methodi 00:00:00 00:00:[address] Documentat 3.430.2.7 Hos jorge ion .3.177318 l .8 2021-11-26 2021-11-26 Travel 1.2.840.1 1.2.871.160 5887 620336 Methodi 00:00:00 00:00:[address] 3.430.2.7 0.2.7.3.698 Ho spita .3.658004 084.8 l .8 2021-11-26 2021-11-26 Plan of 1.2.840.1 [id number] 328916 6645 Methodi 00:00:00 00:00:[address] Documentat 3.430.2.7 Hos jorge ion .3.847146 l .8 2021-11-26 2021-11-26 Travel 1.2.840.1 1.2.787.345 8129 785676 Methodi 00:00:00 00:00:[address] 3.430.2.7 0.2.7.3.698 Ho spita .3.900933 084.8 l .8 2021-10-18 2021-10-18 Telephone [place], 1.2.840.1 [id number] Methodi 00:00:00 00:00:00 Shenetrius 99200.1.1 112 [address] 3.430.2.7 Hospit a .3.507057 l .8 2021-10-18 2021-10-18 Telephone [place], 1.2.840.1 [id number] Methodi 00:00:00 00:00:00 Shenetrius 17308.1.1 112 s t 3.430.2.7 Hospit a .3.319299 l .8 2021-10-17 2021-10-17 Telephone [facility], 1.2.840.1 [id number] Methodi 00:00:00 00:00:[address] 3.430.2.7 Hospit a .3.633319 l .8 2021-10-17 2021-10-17 Telephone Bravo, 1.2.840.1 [id number] 2100 [id number] Methodi 00:00:00 00:00:[address] 3.430.2.7 Hospit a .3.394038 l .8 2021-10-01 2021-10-01 Office Evelina, 1.2.840.1 [id number] 2529 Methodi 14:00:00 16:34:34 Visit Devon 19143.1.[address] Dewi 3.430.2.7 Hospit a Leonel .3.722077 l .8 2021-10-01 2021-10-01 Travel 1.2.840.1 1.2.683.788 4157 [id number] Methodi 00:00:00 00:00:[address] 3.430.2.7 0.2.7.3.698 Ho spita .3.536388 084.8 l .8 2021-09-17 2021-09-17 Outpatient JAQUI [facility] [id number] [facility] 13:05:43 14:09:42 JANNETTE [facility] 2021-07-18 2021-07-18 Outpatient JAQUI [facility] [id number] [facility] 13:52:07 15:16:36 JANNETTE [facility] 2021-06-27 2021-06-27 Outpatient EMERALD [facility] [id number] [facility] 14:18:08 15:05:21 KRIS [facility] 2021-06-22 2021-06-22 Outpatient JAQUI [facility] [id number] [facility] 12:55:10 15:24:54 JANNETTE [facility] 2021-06-15 2021-06-15 Outpatient JAQUI [facility] [id number] [facility] 14:09:32 17:12:43 JANNETTE [facility] 2021-06-14 2021-06-14 Michael Funes 1.2.840.1 [id number] 2595 Methodi 00:00:00 00:00:00 Only Alysaancia [address]648.1.[address] 3.430.2.7 Hospit a .3.199079 l .8 2021-05-30 2021-05-30 Outpatient ANNY [facility] [id number] [facility] 12:44:16 15:22:47 JANNETTE [facility] 2021-05-25 2021-05-25 Outpatient NATHANIEL [facility] [id number] 13:35:14 16:37:51 MURIEL al 2021-05-08 2021-05-14 Telemedici Alonzo, 1.2.840.1 [id number] Methodi 11:10:00 05:44:45 ne Jeffery 56351.1.[address] 3.430.2.7 Hospit a .3.891976 l .8 2021-04-25 2021-04-25 Travel 1.2.840.1 1.2.648.857 2115 [id number] Methodi 00:00:00 00:00:[address] 3.430.2.7 0.2.7.3.698 Ho spita .3.538832 084.8 l .8 2021-04-18 2021-04-18 [facility] [id number] [facility] 09:10:20 10:43:34 NOEM[facility] [employer] [facility] 2021-03-26 2021-03-[address] [facility] [id number] [facility] 17:01:51 17:04:44 [facility]EM[facility] [employer] 2021-03-15 2021-03-[address] [facility] [id number] [facility] 08:29:48 10:02:23 [employer]EM[facility] [employer] 2021-03-13 2021-03-13 Office Marti, 1.2.840.1 [id number] Methodi 14:15:00 16:42:41 Visit Jerry Sorto 57497.1.[address] 3.430.2.7 Hospit a .3.172357 l .8 2021-03-13 2021-03-13 Travel 1.2.840.1 1.2.004.914 0050 [id number] Methodi 00:00:00 00:00:[address] 3.430.2.7 0.2.7.3.698 Ho spita .3.940061 084.8 l .8 2021-03-05 2021-03-05 Outpatient [facility], [facility] [id number] [facility] 13:19:37 16:17:40 [facility] [employer] [facility] [employer] 2021-02-19 2021-02-19 Outpatient [facility] [id number] [place] [address] 00:00:00 00:00:00 JEFFERY 475 Method i 2021-02-16 2021-02-16 Outpatient NATHANIEL Medina [facility] [id number] [facility] 09:20:00 09:20:00 Emory Hernandez [facility] 2021-01-29 2021-01-29 Outpatient [facility], [facility] [id number] [facility] 13:22:03 16:18:23 [employer]EM[employer] 2021-01-17 2021-01-17 Outpatient [facility] [id number] [facility] 08:59:39 15:20:13 [employer] 2020-12-20 2020-12-[address] [facility] [id number] [facility] 13:36:11 16:43:19 [employer]EM[employer] 2020-10-24 2020-10-24 Outpatient COUNT INCLUDES THE [facility] [id number] [address] [place] 00:00:00 00:00:00 JEFFERY 748 Method i 2020-08-21 2020-08-21 Outpatient COUNT INCLUDES THE [facility] [id number] [address] [place] 00:00:00 00:00:00 JEFFERY 909 Method i 2020-06-08 2020-06-08 Outpatient NATHANIEL FINCH [facility] [id number] 12:37:36 23:59:00 SALAHADIN [place] r[place] n 2020-06-06 2020-06-06 Outpatient NATHANIEL FINCH [facility] [id number] 13:51:03 23:59:00 SALAHADIN [place] r[place] 2020-05-23 2020-05-23 Outpatient ALONZO, [facility] [id number] [address] [place] 00:00:00 00:00:00 JEFFERY [address] 2020-04-06 2020-04-06 Outpatient [facility] [id number] [address] [place] 00:00:00 00:00:[address] 2020-03-27 2020-03-27 Outpatient ALONZO, [facility] [id number] [address] [place] 00:00:00 00:00:00 JEFFERY [address] 2020-03-07 2020-03-07 Outpatient ALONZO, [facility] [id number] [address] [place] 00:00:00 00:00:00 JEFFERY [address] 2020-03-07 2020-03-07 Outpatient ALONZO, [facility] [id number] [address] [place] 00:00:00 00:00:00 JEFFERY [address] 2020-02-23 2020-02-23 Office ANNY Valadez 1.2.840.[id number] [place] [address] 07:50:54 08:00:54 Visit Noemí Y AMBULATOR 350.1.13.21 College Y 0.2.7.2.686 of [id number] Medi [place] 300 e 2020-02-14 2020-02-14 Outpatient ALONZO, [facility] [id number] [address] [place] 00:00:00 00:00:00 JEFFERY [address] 2020-02-08 2020-02-08 Outpatient MARTI, [facility] [id number] [address] [place] 00:00:00 00:00:00 JERRY [address] 2020-01-26 2020-01-26 Office ANNY Valadez 1.2.840.[id number] [place] [address] 08:36:36 08:46:36 Visit Noemí Y AMBULATOR 350.1.13.21 College Y 0.2.7.2.686 of [id number] Medi [place] 300 e 2020-01-19 2020-01-19 Office ANNY Valadez 1.2.840.114 [id number] [facility] 08:10:24 08:20:24 Visit Noemí Y AMBULATOR 350.1.13.21 College Y 0.2.7.2.686 of [id number] [facility] [place] 300 e 2020-01-18 2020-01-18 Outpatient RORY [facility] [id number] [address] [place] [address] 00:00:00 00:00:00 NOEMÍ [address] 2020-01-17 2020-01-17 Office ANNY Valadez 1.2.840.114 [id number] [facility] 10:37:40 10:52:40 Visit Noemí Y AMBULATOR 350.1.13.21 College Y 0.2.7.2.686 of [id number] [facility] [place] 300 e 2020-01-13 2020-01-13 Outpatient [facility] [id number] [facility] 00:00:00 00:00:00 2019-12-14 2019-12-14 Outpatient [facility] [id number] [facility] 00:00:00 00:00:00 2019-08-05 2019-08-05 Outpatient [facility] [id number] [id number] [facility] 00:00:00 00:00:00 [id number] 2019-07-22 2019-07-22 Office ANNY Valadez 1.2.840.114 [id number] [facility] 10:17:11 10:27:11 Visit Noemí Y AMBULATOR 350.1.13.21 College Y 0.2.7.2.686 of [id number] [facility] 300 e 2019-07-22 2019-07-22 Office ANNY Valadez 1.2.840.114 [id number] 10:17:11 10:27:11 Visit Noemí Y AMBULATOR 350.1.13.21 Y 0.2.7.2.686 [id number] 300 2019-06-21 2019-06-21 Office ANNY Valadez 1.2.840.114 [id number] [facility] 13:00:15 17:13:35 Visit Noemí Y AMBULATOR 350.1.13.21 College Y 0.2.7.2.686 of [id number] [facility] [place] 300 e 2019-06-21 2019-06-21 Office ANNY Valadez 1.2.840.114 [id number] 13:00:15 17:13:35 Visit Noemí Wong AMBULATOR 350.1.13.21 Y 0.2.7.2.686 [id number] 300 Results Test Description Test Time Test Comments Results Result Comments Source Lipid panel 2022-07-26 06:31:00 Test Item Value Reference Range Interpretation Comme nts Cholesterol, total (test 135 mg/dL <=200 code = 2093-3) HDL cholesterol (test 72 mg/dL See_Comment [Auto mated message] code = 2085-9) The system [facility] generated this result transmitted ref erence range: > OR = 5 0. The reference range was not used to int erpret this result as normal/abnormal . Triglycerides (test code 87 mg/dL <=150 = 2571-8) LDL cholesterol 46 mg/dL (calc) Reference ra nge: <100 calculated (test code = Sheyla costello range <100 42159-4) mg/dL for prima ry prevention; <70 mg/dL for patients wi th CHD or diabetic pat ients with > or = 2 C HD risk factors. LDL-C is now calculated jeancarlos ricci the Richa calculation, ich is a validated nov el method nanda ricci better accuracy than the Friedewald equation in the estimation of L DL-C. Emre SS et al . COOPER. 2013;310(19): 5222-3000 (http://educati on.Ques tDiagnostics.co m/faq/F AQ164) Cholesterol/HDL ratio 1.9 See_Comment [Auto mated message] (test code = 9830-1) The s tem which generated this result transmitted ref erence range: <5.0 (ca lc). The reference r jaswant was not used to interpret this result as normal/abnor mal. Non-HDL cholesterol (test 63 See_Comment Fo r patients with code = 30110-6) diabetes plu s 1 major ASCVD risk fact or, treating to a non-HDL-C goal of <100 mg/dL (LDL-C of <70 mg/dL) is consi dered a therapeutic opt ion. [Automated mess age] The system [facility] h generated this result transmitted ref erence range: <130 mg/ dL (calc). The ref erence range was not u sed to interpret this result as normal/abnor mal. OLGA (test code = OLGA) FASTING:YES FASTING: YES RAC (test code = RAC) Performing Organization Information: Site ID: RGA [facility] Address: [address] [place] [phone] Director: Mario Garcia [facility] 12 [id number] 22:03:21 Test Item Value Reference Range Interpretation Comments Ventricular rate (test 65 code = 253) Atrial rate (test code 65 = 255) LA interval (test code 148 = 266) QRSD interval (test 98 code = 260) QT interval (test code 400 = 264) QTC interval (test code 416 = 265) P axis 1 (test code = 50 267) QRS axis 1 (test code = 13 268) T wave axis (test code 28 = 270) EKG impression (test Normal sinus code = 273) rhythm-Incomplete right bundle branch block-Possible Inferior infarct , age undetermined-Abnormal ECG-In automated comparison with ECG of 26-NOV-2021 15:41,-Borderline criteria for Inferior infarct are now present-QT has shortened-Electronical ly Signed By Alan Kurtz MD ([id number]) on 06/10/2022 4:03:18 PM [facility] [id number] 04:43:00 Test Item Value Reference Interpretation Comments Range Glucose (test code 103 mg/dL 65-99 H Fasting reference = 2345-7) interval For so meone without known diabetes, a glu cose valuebetween 10 0 and 125 mg/dL is consistent withprediabetes and should be confi rmed with afollow-up test. BUN (test code = 13 mg/dL 7-25 3094-0) Creatinine (test 0.91 mg/dL 0.50-1.05 code = 2160-0) eGFR (test code = See_Comment The eGFR i s based on 8257) the CKD-EPI 202 1 equation. To calculate the n ew eGFR from a pre vious Creatinine or Cystatin Cresul t, go to https://www.kid jose martin.o rg/professional s/kdo qi/gfr%5Fcalcul ator [Automated mess age] The system [employer] generated this result transmit juliana reference range : > OR = 60 mL/min/1.73m2. The reference range was not used to interpret this result as normal/abnormal . BUN/creatinine NOT APPLICABLE See_Comment [Automated message] ratio (test code = The [employer] m which 3097-3) generated this result transmit juliana reference range : 6 - 22 (calc). The reference range was not used to interpret this result as normal/abnormal . Sodium (test code = 140 mmol/L 570-064 9583-2) Potassium (test 4.4 mmol/L 3.5-5.3 code = 2823-3) Chloride (test code 107 mmol/L 98-110 = 2075-0) CO2 (test code = 29 mmol/L 20-32 2027-9) Calcium (test code 9.9 mg/dL 8.6-10.4 = 80216-9) Protein (test code 6.7 g/dL 6.1-8.1 = 2885-2) Albumin, S (test 3.9 g/dL 3.6-5.1 code = 1751-7) Globulin, total See_Comment [Automated message] (test code = The system [address] [place] [address]-1) generated this result transmit juliana reference range : 1.9 - 3.7 g/dL (josesito c). The reference r jaswant was not used to interpret this result as normal/abnormal . Albumin/globulin See_Comment [Automated message] ratio (test code = The [employer] which 1759-0) generated this result transmit juliana reference range : 1.0 - 2.5 (calc). T he reference range was not used to interpret this result as normal/abnormal . Total bilirubin 0.3 mg/dL 0.2-1.2 (test code = 1974-2) Alkaline 85 U/L 37-153 phosphatase (test code = 6768-6) AST (test code = 16 U/L 10-35 1920-8) ALT (test code = 14 U/L - 1742-6) OLGA (test code = FASTING:YES OLGA) FASTING: YES RAC (test code = Performing RAC) Organization Information: Site ID: REHANA Name: [facility] Address: [address] [place] [phone] Director: Mario Garcia Lab Interpretation Abnormal (test code = 09027-2) [facility] [id number] 04:43:00 Test Item Value Reference Range Interpretation Comments Cholesterol, total 139 mg/dL See_Comment [Automat ed (test code = 2093-3) message ] The system which generated this result transmitted reference range : <=200. The reference range was not used to interpret this result as normal/abnormal . HDL cholesterol 77 mg/dL See_Comment [Automated (test code = 2085-9) message ] The system which generated this result transmitted reference range : > OR = 50. The reference range was not used to interpret this result as normal/abnormal . Triglycerides (test 97 mg/dL See_Comment [Automa juliana code = 2571-8) message] The system which generated this result transmitted reference range : <=150. The reference range was not used to interpret this result as normal/abnormal . LDL cholesterol mg/dL (calc) Reference ra nge: calculated (test <100 Desira ble code = 37845-7) range <100 m g/dL for primary prevention; <70 mg/dL for patients with C HD or diabetic patients with > or = 2 CHD risk factors. LDL-C is now calculated using the Emre-Mouna calculation, which is a validated novel method providin g better accuracy than the Friedewald equation in the estimation of LDL-C. Emre S S et al. COOPER. 2013;310(19): 8401-8086 (http://educati on .zePASSDiagnostKonarka Technologies .com/faq/JCR046 ) Cholesterol/HDL See_Comment [Automated ratio (test code = message] The 9830-1) system which generated this result transmitted reference range : <5.0 (calc). Th e reference range was not used to interpret this result as normal/abnormal . Non-HDL cholesterol See_Comment For gilma ents with (test code = diabetes plus 1 66515-5) major ASCVD ris k factor, treatin g to a non-HDL-C goal of <100 mg/dL (LDL-C of <70 mg/dL) is considered a therapeutic option. [Automated message] The system which generated this result transmitted reference range : <130 mg/dL (calc). The reference range was not used to interpret this result as normal/abnormal . OLGA (test code = FASTING:YES OLGA) FASTING: YES RAC (test code = Performing RAC) Organization Information: Site ID: REHANA Name: [facility] Address: [address] [place] [phone] Director: Mario Garcia [facility] [id number] 04:43:00 Test Item Value Reference Interpretation Comments Range Hemoglobin A1C See_Comment H For someone w leyda (test code = known diabetes, a 4548-4) hemoglobin A1c value between 5.7% an d 6.4% is consist ent withprediabetes and should be confi rmed with a follow-u p test. For someo ne with known diab etes, a value <7%indicates that their diabetes is well controlled . N8fljikxux shou ld be individualized based on duration ofdiabetes, age , comorbid condit ions, and otherconsiderat ions. This assay resu lt is consistent with an increased risko f diabetes. Corey ntly, no consensus ex ists regarding use ofhemoglobin A1 c for diagnosis of diabetes for children. [Auto mated message] The sy stem which generated this result transmit juliana reference range : <5.7 % of total Hgb. The reference r jaswant was not used to interpret this result as normal/abnormal . OLGA (test code = FASTING:YES OLGA) FASTING: YES RAC (test code = Performing RAC) Organization Information: Site ID: REHANA Name: [facility] Address: [address] [place] [phone] Director: Mario Garcia Lab Interpretation Abnormal (test code = 71588-8) [facility] [id number] 04:43:00 Test Item Value Reference Interpretation Comments Range Glucose (test code 103 mg/dL 65-99 H Fasting reference = 2345-7) interval For so meone without known diabetes, a glu cose valuebetween 10 0 and 125 mg/dL is consistent withprediabetes and should be confi rmed with afollow-up test. BUN (test code = 13 mg/dL 7-25 3094-0) Creatinine (test 0.91 mg/dL 0.50-1.05 code = 2160-0) eGFR (test code = See_Comment The eGFR i s based on 8257) the CKD-EPI 202 1 equation. To calculate the n ew eGFR from a pre vious Creatinine or Cystatin Cresul t, go to https://www.kid jose martin.o rg/professional s/kdo qi/gfr%5Fcalcul ator [Automated mess age] The system [employer] generated this result transmit juliana reference range : > OR = 60 mL/min/1.73m2. The reference range was not used to interpret this result as normal/abnormal . BUN/creatinine NOT APPLICABLE See_Comment [Automated message] ratio (test code = The [employer] which 3097-3) generated this result transmit juliana reference range : 6 - 22 (calc). The reference range was not used to interpret this result as normal/abnormal . Sodium (test code = 140 mmol/L 182-021 4607-2) Potassium (test 4.4 mmol/L 3.5-5.3 code = 2823-3) Chloride (test code 107 mmol/L 98-110 = 2075-0) CO2 (test code = 29 mmol/L 20-32 8-9) Calcium (test code 9.9 mg/dL 8.6-10.4 = 51881-4) Protein (test code 6.7 g/dL 6.1-8.1 = 2885-2) Albumin, S (test 3.9 g/dL 3.6-5.1 code = 1751-7) Globulin, total See_Comment [Automated message] (test code = The system [employer] 35300-0) generated this result transmit juliana reference range : 1.9 - 3.7 g/dL (josesito c). The reference r jaswant was not used to interpret this result as normal/abnormal . Albumin/globulin See_Comment [Automated message] ratio (test code = The [employer] which 1759-0) generated this result transmit juliana reference range : 1.0 - 2.5 (calc). T he reference range was not used to interpret this result as normal/abnormal . Total bilirubin 0.3 mg/dL 0.2-1.2 (test code = 1975-2) Alkaline 85 U/L 37-153 phosphatase (test code = 6768-6) AST (test code = 16 U/L 10-35 1920-8) ALT (test code = 14 U/L 11-14 1742-6) OLGA (test code = FASTING:YES OLGA) FASTING: YES RAC (test code = Performing RAC) Organization Information: Site ID: RGA Name: [facility] Address: [address] [place] [phone] Director: Mario Garcia Lab Interpretation Abnormal (test code = 24507-4) [facility] [id number] 04:43:00 Test Item Value Reference Range Interpretation Comments Cholesterol, total 139 mg/dL See_Comment [Automat ed (test code = 2093-3) message ] The system which generated this result transmitted reference range : <=200. The reference range was not used to interpret this result as normal/abnormal . HDL cholesterol 77 mg/dL See_Comment [Automated (test code = 2085-9) message ] The system which generated this result transmitted reference range : > OR = 50. The reference range was not used to interpret this result as normal/abnormal . Triglycerides (test 97 mg/dL See_Comment [Automa juliana code = 2571-8) message] The system which generated this result transmitted reference range : <=150. The reference range was not used to interpret this result as normal/abnormal . LDL cholesterol mg/dL (calc) Reference ra nge: calculated (test <100 Desira ble code = 23977-9) range <100 m g/dL for primary prevention; <70 mg/dL for patients with C HD or diabetic patients with > or = 2 CHD risk factors. LDL-C is now calculated using the Emre-Mouna calculation, which is a validated novel method providin g better accuracy than the Friedewald equation in the estimation of LDL-C. Emre S S et al. COOPER. 2013;310(19): 1340-9860 (http://educati on .zePASSDiagnosti Troppin .com/faq/DTX341 ) Cholesterol/HDL See_Comment [Automated ratio (test code = message] The 9830-1) system which generated this result transmitted reference range : <5.0 (calc). Th e reference range was not used to interpret this result as normal/abnormal . Non-HDL cholesterol See_Comment For gilma ents with (test code = diabetes plus 1 55875-6) major ASCVD ris k factor, treatin g to a non-HDL-C goal of <100 mg/dL (LDL-C of <70 mg/dL) is considered a therapeutic option. [Automated message] The system which generated this result transmitted reference range : <130 mg/dL (calc). The reference range was not used to interpret this result as normal/abnormal . OLGA (test code = FASTING:YES OLGA) FASTING: YES RAC (test code = Performing RAC) Organization Information: Site ID: RGA Name: [facility] Address: [address] [place] [phone] Director: Mario Garcia [facility] [id number] 04:43:00 Test Item Value Reference Interpretation Comments Range Hemoglobin A1C See_Comment H For someone w leyda (test code = known diabetes, a 4548-4) hemoglobin A1c value between 5.7% an d 6.4% is consist ent withprediabetes and should be confi rmed with a follow-u p test. For someo ne with known diab etes, a value <7%indicates that their diabetes is well controlled . V7kumzbiaz shou ld be individualized based on duration ofdiabetes, age , comorbid condit ions, and otherconsiderat ions. This assay resu lt is consistent with an increased risko f diabetes. Curre ntly, no consensus ex ists regarding use ofhemoglobin A1 c for diagnosis of diabetes for children. [Auto mated message] The sy stem which generated this result transmit juliana reference range : <5.7 % of total Hgb. The reference r jaswant was not used to interpret this result as normal/abnormal . OLGA (test code = FASTING:YES OLGA) FASTING: YES RAC (test code = Performing RAC) Organization Information: Site ID: RGA Name: [facility] Address: [address] [place] [phone] Director: Mario Garcia Lab Interpretation Abnormal (test code = 19659-0) [facility] metabolic [id number] 04:43:00 Test Item Value Reference Interpretation Comments Range Glucose (test code 103 mg/dL 65-99 H Fasting reference = 2345-7) interval For so meone without known diabetes, a glu cose valuebetween 10 0 and 125 mg/dL is consistent withprediabetes and should be confi rmed with afollow-up test. BUN (test code = 13 mg/dL 12-10 3094-0) Creatinine (test 0.91 mg/dL 0.50-1.05 code = 2160-0) eGFR (test code = See_Comment The eGFR i s based on 8257) the CKD-EPI 202 1 equation. To calculate the n ew eGFR from a pre vious Creatinine or Cystatin Cresul t, go to https://www.[employer]ocks jose martin.o rg/professional s/kdo qi/gfr%5Fcalcul ator [Automated mess age] The system [employer] generated this result transmit juliana reference range : > OR = 60 mL/min/1.73m2. The reference range was not used to interpret this result as normal/abnormal . BUN/creatinine NOT APPLICABLE See_Comment [Automated message] ratio (test code = The [employer] which 3097-3) generated this result transmit juliana reference range : 6 - 22 (calc). The reference range was not used to interpret this result as normal/abnormal . Sodium (test code = 140 mmol/L 893-586 4924-2) Potassium (test 4.4 mmol/L 3.5-5.3 code = 2823-3) Chloride (test code 107 mmol/L 98-110 = 2075-0) CO2 (test code = 29 mmol/L 20-32 8-9) Calcium (test code 9.9 mg/dL 8.6-10.4 = 62250-8) Protein (test code 6.7 g/dL 6.1-8.1 = 2885-2) Albumin, S (test 3.9 g/dL 3.6-5.1 code = 1751-7) Globulin, total See_Comment [Automated message] (test code = The system [employer] 83545-0) generated this result transmit juliana reference range : 1.9 - 3.7 g/dL (josesito c). The reference r jaswant was not used to interpret this result as normal/abnormal . Albumin/globulin See_Comment [Automated message] ratio (test code = The [employer] which 1759-0) generated this result transmit juliana reference range : 1.0 - 2.5 (calc). T he reference range was not used to interpret this result as normal/abnormal . Total bilirubin 0.3 mg/dL 0.2-1.2 (test code = 1974-2) Alkaline 85 U/L 37-153 phosphatase (test code = 6768-6) AST (test code = 16 U/L 10-35 1920-8) ALT (test code = 14 U/L 6-29 1742-6) OLGA (test code = FASTING:YES OLGA) FASTING: YES RAC (test code = Performing RAC) Organization Information: Site ID: RGA Name: [facility] Address: [address] [place] [phone] Director: Mario Garcia Lab Interpretation Abnormal (test code = 35163-6) [facility] [id number] 04:43:00 Test Item Value Reference Range Interpretation Comments Cholesterol, total 139 mg/dL See_Comment [Automat ed (test code = 2093-3) message ] The system which generated this result transmitted reference range : <=200. The reference range was not used to interpret this result as normal/abnormal . HDL cholesterol 77 mg/dL See_Comment [Automated (test code = 2085-9) message ] The system which generated this result transmitted reference range : > OR = 50. The reference range was not used to interpret this result as normal/abnormal . Triglycerides (test 97 mg/dL See_Comment [Automa juliana code = 2571-8) message] The system which generated this result transmitted reference range : <=150. The reference range was not used to interpret this result as normal/abnormal . LDL cholesterol mg/dL (calc) Reference ra nge: calculated (test <100 Desira ble code = 78624-4) range <100 m g/dL for primary prevention; <70 mg/dL for patients with C HD or diabetic patients with > or = 2 CHD risk factors. LDL-C is now calculated using the Richa calculation, which is a validated novel method providin g better accuracy than the Friedewald equation in the estimation of LDL-C. Emre Alexis S et al. COOPER. 2013;310(19): 8203-1583 (http://educati on .zePASSDiagnPinch Media .com/faq/XPU381 ) Cholesterol/HDL See_Comment [Automated ratio (test code = message] The 9830-1) system which generated this result transmitted reference range : <5.0 (calc). Th e reference range was not used to interpret this result as normal/abnormal . Non-HDL cholesterol See_Comment For gilma ents with (test code = diabetes plus 1 87941-5) major ASCVD ris k factor, treatin g to a non-HDL-C goal of <100 mg/dL (LDL-C of <70 mg/dL) is considered a therapeutic option. [Automated message] The system which generated this result transmitted reference range : <130 mg/dL (calc). The reference range was not used to interpret this result as normal/abnormal . OLGA (test code = FASTING:YES OLGA) FASTING: YES RAC (test code = Performing RAC) Organization Information: Site ID: RGA Name: [facility] Address: [address] [place] [address] Director: Mario Garcia [facility] [id number] 04:43:00 Test Item Value Reference Interpretation Comments Range Hemoglobin A1C See_Comment H For someone w leyda (test code = known diabetes, a 4548-4) hemoglobin A1c value between 5.7% an d 6.4% is consist ent withprediabetes and should be confi rmed with a follow-u p test. For someo ne with known diab etes, a value <7%indicates that their diabetes is well controlled . Q6damphsug shou ld be individualized based on duration ofdiabetes, age , comorbid condit ions, and otherconsiderat ions. This assay resu lt is consistent with an increased risko f diabetes. Curre ntly, no consensus ex ists regarding use ofhemoglobin A1 c for diagnosis of diabetes for children. [Auto mated message] The sy stem which generated this result transmit juliana reference range : <5.7 % of total Hgb. The reference r jaswant was not used to interpret this result as normal/abnormal . OLGA (test code = FASTING:YES OLGA) FASTING: YES RAC (test code = Performing RAC) Organization Information: Site ID: RGA Name: [facility] Address: [address] [place] [address] Director: Mario Garcia Lab Interpretation Abnormal (test code = 01321-3) [facility] [id number] 04:43:00 Test Item Value Reference Interpretation Comments Range Glucose (test code 103 mg/dL 65-99 H Fasting reference = 2345-7) interval For so bruna without known diabetes, a glu cose valuebetween 10 0 and 125 mg/dL is consistent withprediabetes and should be confi rmed with afollow-up test. BUN (test code = 13 mg/dL 7- 3094-0) Creatinine (test 0.91 mg/dL 0.50-1.05 code = 2160-0) eGFR (test code = See_Comment The eGFR i s based on 8257) the CKD-EPI 202 1 equation. To calculate the n ew eGFR from a pre vious Creatinine or Cystatin Cresul t, go to https://www.Audio[employer].o rg/professional s/kdo qi/gfr%5Fcalcul ator [Automated mess age] The system [employer] generated this result transmit juliana reference range : > OR = 60 mL/min/1.73m2. The reference range was not used to interpret this result as normal/abnormal . BUN/creatinine NOT APPLICABLE See_Comment [Automated message] ratio (test code = The [employer] which 3097-3) generated this result transmit juliana reference range : 6 - 22 (calc). The reference range was not used to interpret this result as normal/abnormal . Sodium (test code = 140 mmol/L 467-150 4809-2) Potassium (test 4.4 mmol/L 3.5-5.3 code = 2823-3) Chloride (test code 107 mmol/L 98-110 = 2075-0) CO2 (test code = 29 mmol/L 20-32 8-9) Calcium (test code 9.9 mg/dL 8.6-10.4 = 56987-8) Protein (test code 6.7 g/dL 6.1-8.1 = 2885-2) Albumin, S (test 3.9 g/dL 3.6-5.1 code = 1751-7) Globulin, total See_Comment [Automated message] (test code = The system [employer] 72128-3) generated this result transmit juliana reference range : 1.9 - 3.7 g/dL (josesito c). The reference r jaswant was not used to interpret this result as normal/abnormal . Albumin/globulin See_Comment [Automated message] ratio (test code = The syste m which 175-0) generated this result transmit juliana reference range : 1.0 - 2.5 (calc). T he reference range was not used to interpret this result as normal/abnormal . Total bilirubin 0.3 mg/dL 0.2-1.2 (test code = 1975-2) Alkaline 85 U/L 37-153 phosphatase (test code = 6768-6) AST (test code = 16 U/L 10-35 1920-8) ALT (test code = 14 U/L 6-29 1742-6) OLGA (test code = FASTING:YES OLGA) FASTING: YES RAC (test code = Performing RAC) Organization Information: Site ID: RGA [facility] Address: [address] [place] [id number] Director: Mario Garcia Lab Interpretation Abnormal (test code = 20411-1) [facility] [id number] 04:43:00 Test Item Value Reference Range Interpretation Comments Cholesterol, total 139 mg/dL See_Comment [Automat ed (test code = 2093-3) message ] The system which generated this result transmitted reference range : <=200. The reference range was not used to interpret this result as normal/abnormal . HDL cholesterol 77 mg/dL See_Comment [Automated (test code = 2085-9) message ] The system which generated this result transmitted reference range : > OR = 50. The reference range was not used to interpret this result as normal/abnormal . Triglycerides (test 97 mg/dL See_Comment [Automa juliana code = 2571-8) message] The system which generated this result transmitted reference range : <=150. The reference range was not used to interpret this result as normal/abnormal . LDL cholesterol mg/dL (calc) Reference ra nge: calculated (test <100 Desira ble code = 26394-8) range <100 m g/dL for primary prevention; <70 mg/dL for patients with C HD or diabetic patients with > or = 2 CHD risk factors. LDL-C is now calculated using the Emre-Freire calculation, which is a validated novel method providin g better accuracy than the Friedewald equation in the estimation of LDL-C. Emre S S et al. COOPER. 2013;310(19): 4547-0719 (http://educati on .[employer] .com/faq/EPK243 ) Cholesterol/HDL See_Comment [Automated ratio (test code = message] The 9830-1) system which generated this result transmitted reference range : <5.0 (calc). Th e reference range was not used to interpret this result as normal/abnormal . Non-HDL cholesterol See_Comment For gilma ents with (test code = diabetes plus 1 48034-1) major ASCVD ris k factor, treatin g to a non-HDL-C goal of <100 mg/dL (LDL-C of <70 mg/dL) is considered a therapeutic option. [Automated message] The system which generated this result transmitted reference range : <130 mg/dL (calc). The reference range was not used to interpret this result as normal/abnormal . OLGA (test code = FASTING:YES OLGA) FASTING: YES RAC (test code = Performing RAC) Organization Information: Site ID: RGA [facility]: [facility] Address: [address] [place] [id number] Director: Mario Garcia [facility] [id number] 04:43:00 Test Item Value Reference Interpretation Comments Range Hemoglobin A1C See_Comment H For someone w ithout (test code = known diabetes, a 4548-4) hemoglobin A1c value between 5.7% an d 6.4% is consist ent withprediabetes and should be confi rmed with a follow-u p test. For someo ne with known diab etes, a value <7%indicates that their diabetes is well controlled . [id number] shou ld be individualized based on duration ofdiabetes, age , comorbid condit ions, and otherconsiderat ions. This assay resu lt is consistent with an increased risko f diabetes. Curre ntly, no consensus ex ists regarding use ofhemoglobin A1 c for diagnosis of diabetes for children. [Auto mated message] The sy stem which generated this result transmit juliana reference range : <5.7 % of total Hgb. The reference r jaswant was not used to interpret this result as normal/abnormal . OLGA (test code = FASTING:YES OLGA) FASTING: YES RAC (test code = Performing RAC) Organization Information: Site ID: REHANA Name: [facility] Address: [address] [place] [id number] Director: Mario Garcia Lab Interpretation Abnormal (test code = 41491-8) [facility] [id number] 04:43:00 Test Item Value Reference Interpretation Comments Range Glucose (test code 103 mg/dL 65-99 H Fasting reference = 2345-7) interval For so meone without known diabetes, a glu cose valuebetween 10 0 and 125 mg/dL is consistent withprediabetes and should be confi rmed with afollow-up test. BUN (test code = 13 mg/dL 12-10 3094-0) Creatinine (test 0.91 mg/dL 0.50-1.05 code = 2160-0) eGFR (test code = See_Comment The eGFR i s based on 8257) the CKD-EPI 202 1 equation. To calculate the n ew eGFR from a pre vious Creatinine or Cystatin Cresul t, go to https://www.kid jose martin.o rg/professional s/kdo qi/gfr%5Fcalcul ator [Automated mess age] The system [employer] h generated this result transmit juliana reference range : > OR = 60 mL/min/1.73m2. The reference range was not used to interpret this result as normal/abnormal . BUN/creatinine NOT APPLICABLE See_Comment [Automated message] ratio (test code = The syste m which 3097-3) generated this result transmit juliana reference range : 6 - 22 (calc). The reference range was not used to interpret this result as normal/abnormal . Sodium (test code = 140 mmol/L 422-596 4937-2) Potassium (test 4.4 mmol/L 3.5-5.3 code = 2823-3) Chloride (test code 107 mmol/L 98-110 = 2075-0) CO2 (test code = 29 mmol/L 20-32 8-9) Calcium (test code 9.9 mg/dL 8.6-10.4 = 12490-4) Protein (test code 6.7 g/dL 6.1-8.1 = 2885-2) Albumin, S (test 3.9 g/dL 3.6-5.1 code = 1751-7) Globulin, total See_Comment [Automated message] (test code = [place] [address]-2) generated this result transmit juliana reference range : 1.9 - 3.7 g/dL (josesito c). The reference r jaswant was not used to interpret this result as normal/abnormal . Albumin/globulin See_Comment [Automated message] ratio (test code = The syste m which 1759-0) generated this result transmit juliana reference range : 1.0 - 2.5 (calc). T he reference range was not used to interpret this result as normal/abnormal . Total bilirubin 0.3 mg/dL 0.2-1.2 (test code = 1974-2) Alkaline 85 U/L 37-153 phosphatase (test code = 6768-6) AST (test code = 16 U/L 10-35 1920-8) ALT (test code = 14 U/L 6-29 1742-6) OLGA (test code = FASTING:YES OLGA) FASTING: YES RAC (test code = Performing RAC) Organization Information: Site ID: RGA Name: [facility] Address: [address] [place] [phone] Director: Mario Garcia Lab Interpretation Abnormal (test code = 58628-7) [facility] [id number] 04:43:00 Test Item Value Reference Range Interpretation Comments Cholesterol, total 139 mg/dL See_Comment [Automat ed (test code = 2092-3) message ] The system which generated this result transmitted reference range : <=200. The reference range was not used to interpret this result as normal/abnormal . HDL cholesterol 77 mg/dL See_Comment [Automated (test code = 2084-9) message ] The system which generated this result transmitted reference range : > OR = 50. The reference range was not used to interpret this result as normal/abnormal . Triglycerides (test 97 mg/dL See_Comment [Automa juliana code = 2571-8) message] The system which generated this result transmitted reference range : <=150. The reference range was not used to interpret this result as normal/abnormal . LDL cholesterol mg/dL (calc) Reference ra nge: calculated (test <100 Desira ble code = 73165-1) range <100 m g/dL for primary prevention; <70 mg/dL for patients with C HD or diabetic patients with > or = 2 CHD risk factors. LDL-C is now calculated using the Richa calculation, which is a validated novel method providin g better accuracy than the Friedewald equation in the estimation of LDL-C. Emre S S et al. COOPER. 2013;310(19): 3240-8554 (http://educati on .[employer] .com/faq/KTE302 ) Cholesterol/HDL See_Comment [Automated ratio (test code = message] The 9830-1[employer]aven[employer] system which generated this result transmitted reference range : <5.0 (calc). Th e reference range was not used to interpret this result as normal/abnormal . Non-HDL cholesterol See_Comment For gilma ents with (test code = diabetes plus 1 69057-7) major ASCVD ris k factor, treatin g to a non-HDL-C goal of <100 mg/dL (LDL-C of <70 mg/dL) is considered a therapeutic option. [Automated message] The system which generated this result transmitted reference range : <130 mg/dL (calc). The reference range was not used to interpret this result as normal/abnormal . OLGA (test code = FASTING:YES OLGA) FASTING: YES RAC (test code = Performing RAC) Organization Information: Site ID: RGA Name: [facility] Address: [address] [place] [phone] Director: Mario Garcia [facility] [id number] 04:43:00 Test Item Value Reference Interpretation Comments Range Hemoglobin A1C See_Comment H For someone w ithout (test code = known diabetes, a 4548-4) hemoglobin A1c value between 5.7% an d 6.4% is consist ent withprediabetes and should be confi rmed with a follow-u p test. For someo ne with known diab etes, a value <7%indicates that their diabetes is well controlled . Z3ptupyssh shou ld be individualized based on duration ofdiabetes, age , comorbid condit ions, and otherconsiderat ions. This assay resu lt is consistent with an increased risko f diabetes. Curre ntly, no consensus ex ists regarding use ofhemoglobin A1 c for diagnosis of diabetes for children. [Auto mated message] The sy stem which generated this result transmit juliana reference range : <5.7 % of total Hgb. The reference r jaswant was not used to interpret this result as normal/abnormal . OLGA (test code = FASTING:YES OLGA) FASTING: YES RAC (test code = Performing RAC) Organization Information: Site ID: RGA Name: [facility] Address: [address] [place] [phone] Director: Mario Garcia Lab Interpretation Abnormal (test code = 03114-8) [facility] [id number] 04:43:00 Test Item Value Reference Interpretation Comments Range Glucose (test code 103 mg/dL 65-99 H Fasting reference = 2345-7) interval For so meone without known diabetes, a glu cose valuebetween 10 0 and 125 mg/dL is consistent withprediabetes and should be confi rmed with afollow-up test. BUN (test code = 13 mg/dL 7-25 3094-0) Creatinine (test 0.91 mg/dL 0.50-1.05 code = 2160-0) eGFR (test code = See_Comment The eGFR i s based on 8257) the CKD-EPI 202 1 equation. To calculate the n ew eGFR from a pre vious Creatinine or Cystatin Cresul t, go to https://www.kid jose martin.o rg/professional s/kdo qi/gfr%5Fcalcul ator [Automated mess age] The system Lum[employer] h generated this result transmit juliana reference range : > OR = 60 mL/min/1.73m2. The reference range was not used to interpret this result as normal/abnormal . BUN/creatinine NOT APPLICABLE See_Comment [Automated message] ratio (test code = The syste m which 3097-3) generated this result transmit juliana reference range : 6 - 22 (calc). The reference range was not used to interpret this result as normal/abnormal . Sodium (test code = 140 mmol/L 680-061 4155-2) Potassium (test 4.4 mmol/L 3.5-5.3 code = 2823-3) Chloride (test code 107 mmol/L 98-110 = 5-0) CO2 (test code = 29 mmol/L 20-32 2027-) Calcium (test code 9.9 mg/dL 8.6-10.4 = 14948-0) Protein (test code 6.7 g/dL 6.1-8.1 = 2885-2) Albumin, S (test 3.9 g/dL 3.6-5.1 code = 1751-7) Globulin, total See_Comment [Automated message] (test code = [place] [address]-1) generated this result transmit juliana reference range : 1.9 - 3.7 g/dL (josesito c). The reference r jaswant was not used to interpret this result as normal/abnormal . Albumin/globulin See_Comment [Automated message] ratio (test code = The syste m which 1759-0) generated this result transmit juliana reference range : 1.0 - 2.5 (calc). T he reference range was not used to interpret this result as normal/abnormal . Total bilirubin 0.3 mg/dL 0.2-1.2 (test code = 1974-2) Alkaline 85 U/L 37-153 phosphatase (test code = 6768-6) AST (test code = 16 U/L 10-35 1920-8) ALT (test code = 14 U/L 6-29 1742-6) OLGA (test code = FASTING:YES OLGA) FASTING: YES RAC (test code = Performing RAC) Organization Information: Site ID: RGA [facility] Address: [address] [place] [id number] Director: Mario Garcia Lab Interpretation Abnormal (test code = 41057-1) [facility] [id number] 04:43:00 Test Item Value Reference Range Interpretation Comments Cholesterol, total 139 mg/dL See_Comment [Automat ed (test code = 2092-07) message ] The system which generated this result transmitted reference range : <=200. The reference range was not used to interpret this result as normal/abnormal . HDL cholesterol 77 mg/dL See_Comment [Automated (test code = 2085-01) message ] The system which generated this result transmitted reference range : > OR = 50. The reference range was not used to interpret this result as normal/abnormal . Triglycerides (test 97 mg/dL See_Comment [Automa juliana code = 2571-8) message] The system which generated this result transmitted reference range : <=150. The reference range was not used to interpret this result as normal/abnormal . LDL cholesterol mg/dL (calc) Reference ra nge: calculated (test <100 Desira ble code = 24128-0) range <100 m g/dL for primary prevention; <70 mg/dL for patients with C HD or diabetic patients with > or = 2 CHD risk factors. LDL-C is now calculated using the Richa calculation, which is a validated novel method providin g better accuracy than the Friedewald equation in the estimation of LDL-C. Emre S S et al. COOPER. 2013;310(19): 0312-5246 (http://educati on .[employer] .com/faq/ODB919 ) Cholesterol/HDL See_Comment [Automated ratio (test code = message] The 9830-1) system which generated this result transmitted reference range : <5.0 (calc). Th e reference range was not used to interpret this result as normal/abnormal . Non-HDL cholesterol See_Comment For gilma ents with (test code = diabetes plus 1 02300-6) major ASCVD ris k factor, treatin g to a non-HDL-C goal of <100 mg/dL (LDL-C of <70 mg/dL) is considered a therapeutic option. [Automated message] The system which generated this result transmitted reference range : <130 mg/dL (calc). The reference range was not used to interpret this result as normal/abnormal . OLGA (test code = FASTING:YES OLGA) FASTING: YES RAC (test code = Performing RAC) Organization Information: Site ID: RGA Name: [facility] Address: [address] [place] [id number] Director: Mario Garcia [facility] [id number] 04:43:00 Test Item Value Reference Interpretation Comments Range Hemoglobin A1C See_Comment H For someone w ithout (test code = known diabetes, a 4548-4) hemoglobin A1c value between 5.7% an d 6.4% is consist ent withprediabetes and should be confi rmed with a follow-u p test. For someo ne with known diab etes, a value <7%indicates that their diabetes is well controlled . U3oodgkggz shou ld be individualized based on duration ofdiabetes, age , comorbid condit ions, and otherconsiderat ions. This assay resu lt is consistent with an increased risko f diabetes. Curre ntly, no consensus ex ists regarding use ofhemoglobin A1 c for diagnosis of diabetes for children. [Auto mated message] The sy stem which generated this result transmit juliana reference range : <5.7 % of total Hgb. The reference r jaswant was not used to interpret this result as normal/abnormal . OLGA (test code = FASTING:YES OLGA) FASTING: YES RAC (test code = Performing RAC) Organization Information: Site ID: RGA Name: [facility] Address: [address] [place], [place] [address] Director: Mario Garcia Lab Interpretation Abnormal (test code = 91818-4) [facility] metabolic [id number] 04:43:00 Test Item Value Reference Interpretation Comments Range Glucose (test code 103 mg/dL 65-99 H Fasting reference = 2345-7) interval For so bruna without known diabetes, a glu cose valuebetween 10 0 and 125 mg/dL is consistent withprediabetes and should be confi rmed with afollow-up test. BUN (test code = 13 mg/dL 7-25 3094-0) Creatinine (test 0.91 mg/dL 0.5-1.05 code = 2160-0) eGFR (test code = See_Comment The eGFR i s based on 8257) the CKD-EPI 202 1 equation. To calculate the n ew eGFR from a pre vious Creatinine or Cystatin Cresul t, go to https://www.kid jose martin.o rg/professional s/kdo qi/gfr%5Fcalcul ator [Automated mess age] The system [employer] generated this result transmit juliana reference range : > OR = 60 mL/min/1.73m2. The reference range was not used to interpret this result as normal/abnormal . BUN/creatinine NOT APPLICABLE See_Comment [Automated message] ratio (test code = The syste m which 3097-3) generated this result transmit juliana reference range : 6 - 22 (calc). The reference range was not used to interpret this result as normal/abnormal . Sodium (test code = 140 mmol/L 630-558 5837-2) Potassium (test 4.4 mmol/L 3.5-5.3 code = 2823-3) Chloride (test code 107 mmol/L 98-110 = 2075-0) CO2 (test code = 29 mmol/L 20-32 8-9) Calcium (test code 9.9 mg/dL 8.6-10.4 = 77026-1) Protein (test code 6.7 g/dL 6.1-8.1 = 2885-2) Albumin, S (test 3.9 g/dL 3.6-5.1 code = 1751-7) Globulin, total See_Comment [Automated message] (test code = The [place] 46275-7) generated this result transmit juliana reference range : 1.9 - 3.7 g/dL (josesito c). The reference r jaswant was not used to interpret this result as normal/abnormal . Albumin/globulin See_Comment [Automated message] ratio (test code = The syste m which 1759-0) generated this result transmit juliana reference range : 1.0 - 2.5 (calc). T he reference range was not used to interpret this result as normal/abnormal . Total bilirubin 0.3 mg/dL 0.2-1.2 (test code = 1975-2) Alkaline 85 U/L 37-153 phosphatase (test code = 6768-6) AST (test code = 16 U/L 10-35 1920-8) ALT (test code = 14 U/L 6-29 1742-6) OLGA (test code = FASTING:YES OLGA) FASTING: YES RAC (test code = Performing RAC) Organization Information: Site ID: RGA Name: [facility] Address: [address] [place] [address] Director: Mario Garcia Lab Interpretation Abnormal (test code = 79910-3) [facility] [id number] 04:43:00 Test Item Value Reference Range Interpretation Comments Cholesterol, total 139 mg/dL See_Comment [Automat ed (test code = 2093-3) message ] The system which generated this result transmitted reference range : <=200. The reference range was not used to interpret this result as normal/abnormal . HDL cholesterol 77 mg/dL See_Comment [Automated (test code = 5-9) message ] The system which generated this result transmitted reference range : > OR = 50. The reference range was not used to interpret this result as normal/abnormal . Triglycerides (test 97 mg/dL See_Comment [Automa juliana code = 2571-8) message] The system which generated this result transmitted reference range : <=150. The reference range was not used to interpret this result as normal/abnormal . LDL cholesterol mg/dL (calc) Reference ra nge: calculated (test <100 Desira ble code = 18238-9) range <100 m g/dL for primary prevention; <70 mg/dL for patients with C HD or diabetic patients with > or = 2 CHD risk factors. LDL-C is now calculated using the Emre-Mouna calculation, which is a validated novel method providin g better accuracy than the Friedewald equation in the estimation of LDL-C. Emre S S et al. COOPER. 2013;310(19): 0580-2672 (http://educati on .[employer]AS[employer] .com/faq/UYJ368 ) Cholesterol/HDL See_Comment [Automated ratio (test code = message] The 9830-1) system which generated this result transmitted reference range : <5.0 (calc). Th e reference range was not used to interpret this result as normal/abnormal . Non-HDL cholesterol See_Comment For gilma ents with (test code = diabetes plus 1 58758-8) major ASCVD ris k factor, treatin g to a non-HDL-C goal of <100 mg/dL (LDL-C of <70 mg/dL) is considered a therapeutic option. [Automated message] The system which generated this result transmitted reference range : <130 mg/dL (calc). The reference range was not used to interpret this result as normal/abnormal . OLGA (test code = FASTING:YES OLGA) FASTING: YES RAC (test code = Performing RAC) Organization Information: Site ID: RGA Name: [facility] Address: [address] [place] [phone] Director: Mario Garcia [facility] [id number] 04:43:00 Test Item Value Reference Interpretation Comments Range Hemoglobin A1C See_Comment H For someone tato [place] (test code = known diabetes, a 4548-4) hemoglobin A1c value between 5.7% an d 6.4% is consist ent withprediabetes and should be confi rmed with a follow-u p test. For someo ne with known diab etes, a value <7%indicates that their diabetes is well controlled . M0snkxmqum shou ld be individualized based on duration ofdiabetes, age , comorbid condit ions, and otherconsiderat ions. This assay resu lt is consistent with an increased risko f diabetes. Curre ntly, no consensus ex ists regarding use ofhemoglobin A1 c for diagnosis of diabetes for children. [Auto mated message] The sy stem which generated this result transmit juliana reference range : <5.7 % of total Hgb. The reference r jaswant was not used to interpret this result as normal/abnormal . OLGA (test code = FASTING:YES OLGA) FASTING: YES RAC (test code = Performing RAC) Organization Information: Site ID: RGA Name: [facility] Address: [address] [place], [place] [id number] Director: Mario Garcia Lab Interpretation Abnormal (test code = 38896-6) [facility] [id number] 04:43:00 Test Item Value Reference Interpretation Comments Range Glucose (test code 103 mg/dL 65-99 H Fasting reference = 2345-7) interval For so meone without known diabetes, a glu cose valuebetween 10 0 and 125 mg/dL is consistent withprediabetes and should be confi rmed with afollow-up test. BUN (test code = 13 mg/dL 7-25 3094-0) Creatinine (test 0.91 mg/dL 0.50-1.05 code = 2160-0) eGFR (test code = 69 See_Comment The eGFR i s based on 8257) the CKD-EPI 202 1 equation. To calculate the n ew eGFR from a pre vious Creatinine or Cystatin Cresul t, go to [email or web address] jose [email or web address] rg/professional s/kdo qi/gfr%5Fcalcul ator [Automated mess age] The system [employer] generated this result transmit juliana reference range : > OR = 60 mL/min/1.73m2. The reference range was not used to interpret this result as normal/abnormal . BUN/creatinine NOT APPLICABLE See_Comment [Automated message] ratio (test code = The [employer] which 3097-3) generated this result transmit juliana reference range : 6 - 22 (calc). The reference range was not used to interpret this result as normal/abnormal . Sodium (test code = 140 mmol/L 591-091 6212-2) Potassium (test 4.4 mmol/L 3.5-5.3 code = 2823-3) Chloride (test code 107 mmol/L 98-110 = 2075-0) CO2 (test code = 29 mmol/L 20-32 2027-9) Calcium (test code 9.9 mg/dL 8.6-10.4 = 34035-0) Protein (test code 6.7 g/dL 6.1-8.1 = 2885-2) Albumin, S (test 3.9 g/dL 3.6-5.1 code = 1751-7) Globulin, total 2.8 See_Comment [Automated message] (test code = The system [employer] 43843-6) generated this result transmit juliana reference range : 1.9 - 3.7 g/dL (josesito c). The reference r jaswant was not used to interpret this result as normal/abnormal . Albumin/globulin 1.4 See_Comment [Automated message] ratio (test code = The [employer] which 1759-0) generated this result transmit juliana reference range : 1.0 - 2.5 (calc). T he reference range was not used to interpret this result as normal/abnormal . Total bilirubin 0.3 mg/dL 0.2-1.2 (test code = 1974-2) Alkaline 85 U/L 37-153 phosphatase (test code = 6768-6) AST (test code = 16 U/L 10-35 1920-8) ALT (test code = 14 U/L 6-29 1742-6) OLGA (test code = FASTING:YES OLGA) FASTING: YES RAC (test code = Performing RAC) Organization Information: Site ID: A Name: [facility] Address: [address] [place] [id number] Director: Mario Garcia Lab Interpretation Abnormal (test code = 45759-4) [facility] [id number] 04:43:00 Test Item Value Reference Interpretation Comments Range Hemoglobin A1C 5.7 See_Comment H For someone w leyda (test code = known diabetes, a 4548-4) hemoglobin A1c value between 5.7% an d 6.4% is consist ent withprediabetes and should be confi rmed with a follow-u p test. For someo ne with known diab etes, a value <7%indicates that their diabetes is well controlled . L2bkklddzd shou ld be individualized based on duration ofdiabetes, age , comorbid condit ions, and otherconsiderat ions. This assay resu lt is consistent with an increased risko f diabetes. Curre ntly, no consensus ex ists regarding use ofhemoglobin A1 c for diagnosis of diabetes for children. [Auto mated message] The sy stem which generated this result transmit juliana reference range : <5.7 % of total Hgb. The reference r jaswant was not used to interpret this result as normal/abnormal . OLGA (test code = FASTING:YES OLGA) FASTING: YES RAC (test code = Performing RAC) Organization Information: Site ID: RGA Name: [facility] Lab Address: [address] [place] [id number] Director: Mario Garcia Lab Interpretation Abnormal (test code = 87892-8) [facility] 12 [id number] 03:16:47 Test Item Value Reference Range Interpretation Comments Ventricular rate (test code = 253) Atrial rate (test code = 255) LA interval (test code = 266) QRSD interval (test code = 260) QT interval (test code = 264) QTC interval (test code = 265) P axis 1 (test code = 267) QRS axis 1 (test code = 268) T wave axis (test code = 270) EKG impression (test code Normal sinus = 273) rhythm-Electronicall y Signed By Jeffery Rosado MD ([id number]) on 11/28/2021 10:16:43 PM [address]2022-07-14 03:16:47 Test Item Value Reference Range Interpretation Comments Ventricular rate (test code = 253) Atrial rate (test code = 255) LA interval (test code = 266) QRSD interval (test code = 260) QT interval (test code = 264) QTC interval (test code = 265) P axis 1 (test code = 267) QRS axis 1 (test code = 268) T wave axis (test code = 270) EKG impression (test code Normal sinus = 273) rhythm-Electronicall y Signed By Jeffery Rosado MD ([id number]) on 11/28/2021 10:16:43 PM [address]2022-07-14 03:16:47 Test Item Value Reference Range Interpretation Comments Ventricular rate (test code = 253) Atrial rate (test code = 255) LA interval (test code = 266) QRSD interval (test code = 260) QT interval (test code = 264) QTC interval (test code = 265) P axis 1 (test code = 267) QRS axis 1 (test code = 268) T wave axis (test code = 270) EKG impression (test code Normal sinus = 273) rhythm-Electronicall y Signed By Jeffery Rosado MD ([id number]) on 11/28/2021 10:16:43 PM [address]2022-07-14 03:16:47 Test Item Value Reference Range Interpretation Comments Ventricular rate (test code = 253) Atrial rate (test code = 255) LA interval (test code = 266) QRSD interval (test code = 260) QT interval (test code = 264) QTC interval (test code = 265) P axis 1 (test code = 267) QRS axis 1 (test code = 268) T wave axis (test code = 270) EKG impression (test code Normal sinus = 273) rhythm-Electronicall y Signed By Jeffery Rosado MD ([id number]) on 11/28/2021 10:16:43 PM [address]2022-07-14 03:16:47 Test Item Value Reference Range Interpretation Comments Ventricular rate (test code = 253) Atrial rate (test code = 255) LA interval (test code = 266) QRSD interval (test code = 260) QT interval (test code = 264) QTC interval (test code = 265) P axis 1 (test code = 267) QRS axis 1 (test code = 268) T wave axis (test code = 270) EKG impression (test code Normal sinus = 273) rhythm-Electronicall y Signed By Jeffery Rosado MD ([id number]) on 11/28/2021 10:16:43 PM [address]2022-07-14 03:16:47 Test Item Value Reference Range Interpretation Comments Ventricular rate (test code = 253) Atrial rate (test code = 255) LA interval (test code = 266) QRSD interval (test code = 260) QT interval (test code = 264) QTC interval (test code = 265) P axis 1 (test code = 267) QRS axis 1 (test code = 268) T wave axis (test code = 270) EKG impression (test code Normal sinus = 273) rhythm-Electronicall y Signed By Jeffery Rosado MD ([id number]) on 11/28/2021 10:16:43 PM [address]2022-07-14 03:16:47 Test Item Value Reference Range Interpretation Comments Ventricular rate (test code = 253) Atrial rate (test code = 255) LA interval (test code = 266) QRSD interval (test code = 260) QT interval (test code = 264) QTC interval (test code = 265) P axis 1 (test code = 267) QRS axis 1 (test code = 268) T wave axis (test code = 270) EKG impression (test code Normal sinus = 273) rhythm-Electronicall y Signed By Jeffery Rosado MD ([id number]) on 11/28/2021 10:16:43 PM [facility] [id number] 19:55:00 Test Item Value Reference Range Interpretation Comments Total volume, urine (test code = 2338) [address] [facility]2022-05-16 19:55:00 Test Item Value Reference Range Interpretation Comments Total volume, urine (test code = 2338) [address] [facility]2022-05-16 19:55:00 Test Item Value Reference Range Interpretation Comments Total volume, urine (test code = 2338) [address] [facility]2022-05-16 19:55:00 Test Item Value Reference Range Interpretation Comments Total volume, urine (test code = 2338) [address] [facility]2022-05-16 19:55:00 Test Item Value Reference Range Interpretation Comments Total volume, urine (test code = 2338) 0 ML [facility] [id number] 19:55:00 Test Item Value Reference Range Interpretation Comments Total volume, urine (test code = 2338) 0 ML [facility] [id number] 19:55:00 Test Item Value Reference Range Interpretation Comments Total volume, urine (test code = 2338) 0 ML [facility] urinalysis [id number] 19:54:00 Test Item Value Reference Range Interpretation Comments Color urine, POC (test Yellow code = 0203321) Clarity urine, POC (test Clear code = 8486054) Glucose urine, POC (test Negative Negative code = 6499877) Bilirubin urine, POC Negative Negative (test code = 6887102) Ketones urine, POC (test Negative Negative code = 5977032) Specific gravity urine, 1.005-1.030 POC (test code = 3764217) Blood urine, POC (test Negative Negative code = 7403962) pH urine, POC (test code See_Comment [A utomated message] = 7670900) The system whic h generated this result transmitted ref erence range: 5.0, 5.5 , 6.0, 6.5, 7.0, 7.5, 8.0, 8.5. The refere nce range was not u sed to interpret this result as normal/abnor mal. Protein urine, POC (test Negative Negative code = 5237335) Urobilinogen urine, POC <2.0 See_Comment [Au tomated message] (test code = 4559624) The sy stem which generated this result transmitted ref erence range: <=2.0. T he reference range was not used to int erpret this result as normal/abnormal . Nitrite urine, POC (test Negative Negative code = 1812683) Leukocyte esterase Large Negative A urine, POC (test code = 0489835) Lab Interpretation (test Abnormal code = 89731-0) [facility] urinalysis [id number] 19:54:00 Test Item Value Reference Range Interpretation Comments Color urine, POC (test Yellow code = 9489384) Clarity urine, POC (test Clear code = 0555354) Glucose urine, POC (test Negative Negative code = 4232096) Bilirubin urine, POC Negative Negative (test code = 0842866) Ketones urine, POC (test Negative Negative code = 2819846) Specific gravity urine, 1.005-1.030 POC (test code = 1439572) Blood urine, POC (test Negative Negative code = 5989921) pH urine, POC (test code See_Comment [A utomated message] = 6732804) The system [employer] generated this result transmitted ref erence range: 5.0, 5.5 , 6.0, 6.5, 7.0, 7.5, 8.0, 8.5. The refere nce range was not u sed to interpret this result as normal/abnor mal. Protein urine, POC (test Negative Negative code = 4835112) Urobilinogen urine, POC <2.0 See_Comment [Au tomated message] (test code = 0317571) The [employer] which generated this result transmitted ref erence range: <=2.0. T he reference range was not used to int erpret this result as normal/abnormal . Nitrite urine, POC (test Negative Negative code = 5026757) Leukocyte esterase Large Negative A urine, POC (test code = 8180375) Lab Interpretation (test Abnormal code = 04164-6) [facility] urinalysis [id number] 19:54:00 Test Item Value Reference Range Interpretation Comments Color urine, POC (test Yellow code = 4953129) Clarity urine, POC (test Clear code = 8488930) Glucose urine, POC (test Negative Negative code = 8952499) Bilirubin urine, POC Negative Negative (test code = 0319376) Ketones urine, POC (test Negative Negative code = 4192441) Specific gravity urine, 1.005-1.030 POC (test code = 4938357) Blood urine, POC (test Negative Negative code = 7495227) pH urine, POC (test code See_Comment [A utomated message] = 4471042) The system [employer] generated this result transmitted ref erence range: 5.0, 5.5 , 6.0, 6.5, 7.0, 7.5, 8.0, 8.5. The refere nce range was not u sed to interpret this result as normal/abnor mal. Protein urine, POC (test Negative Negative code = 2007427) Urobilinogen urine, POC <2.0 See_Comment [Au tomated message] (test code = 7032076) The sy stem which generated this result transmitted ref erence range: <=2.0. T he reference range was not used to int erpret this result as normal/abnormal . Nitrite urine, POC (test Negative Negative code = 6293422) Leukocyte esterase Large Negative A urine, POC (test code = 4467711) Lab Interpretation (test Abnormal code = 65475-5) [facility] urinalysis [id number] 19:54:00 Test Item Value Reference Range Interpretation Comments Color urine, POC (test Yellow code = 2123218) Clarity urine, POC (test Clear code = 2791044) Glucose urine, POC (test Negative Negative code = 5330768) Bilirubin urine, POC Negative Negative (test code = 1324763) Ketones urine, POC (test Negative Negative code = 8045473) Specific gravity urine, 1.005-1.030 POC (test code = 6447787) Blood urine, POC (test Negative Negative code = 6152484) pH urine, POC (test code See_Comment [A utomated message] = 7730116) The system [employer] generated this result transmitted ref erence range: 5.0, 5.5 , 6.0, 6.5, 7.0, 7.5, 8.0, 8.5. The refere nce range was not u sed to interpret this result as normal/abnor mal. Protein urine, POC (test Negative Negative code = 6049447) Urobilinogen urine, POC <2.0 See_Comment [Au tomated message] (test code = 2175427) The sy stem which generated this result transmitted ref erence range: <=2.0. T he reference range was not used to int erpret this result as normal/abnormal . Nitrite urine, POC (test Negative Negative code = 9248350) Leukocyte esterase Large Negative A urine, POC (test code = 8579142) Lab Interpretation (test Abnormal code = 07696-7) [facility] urinalysis [id number] 19:54:00 Test Item Value Reference Range Interpretation Comments Color urine, POC (test Yellow code = 4679376) Clarity urine, POC (test Clear code = 6053724) Glucose urine, POC (test Negative Negative code = 5267270) Bilirubin urine, POC Negative Negative (test code = 7432072) Ketones urine, POC (test Negative Negative code = 7132888) Specific gravity urine, 1.005-1.030 POC (test code = 1867611) Blood urine, POC (test Negative Negative code = 8120456) pH urine, POC (test code See_Comment [A utomated message] = 6801583) The system [employer] generated this result transmitted ref erence range: 5.0, 5.5 , 6.0, 6.5, 7.0, 7.5, 8.0, 8.5. The refere nce range was not u sed to interpret this result as normal/abnor mal. Protein urine, POC (test Negative Negative code = 6640607) Urobilinogen urine, POC <2.0 See_Comment [Au tomated message] (test code = 7251009) The sy stem which generated this result transmitted ref erence range: <=2.0. T he reference range was not used to int erpret this result as normal/abnormal . Nitrite urine, POC (test Negative Negative code = 6825558) Leukocyte esterase Large Negative A urine, POC (test code = 9363904) Lab Interpretation (test Abnormal code = 67903-1) [facility] urinalysis [id number] 19:54:00 Test Item Value Reference Range Interpretation Comments Color urine, POC (test Yellow code = 9472187) Clarity urine, POC (test Clear code = 4161514) Glucose urine, POC (test Negative Negative code = 1640419) Bilirubin urine, POC Negative Negative (test code = 8146219) Ketones urine, POC (test Negative Negative code = 1829377) Specific gravity urine, 1.005-1.030 POC (test code = 1535381) Blood urine, POC (test Negative Negative code = 8484455) pH urine, POC (test code See_Comment [A utomated message] = 2178170) The system [employer] generated this result transmitted ref erence range: 5.0, 5.5 , 6.0, 6.5, 7.0, 7.5, 8.0, 8.5. The refere nce range was not u sed to interpret this result as normal/abnor mal. Protein urine, POC (test Negative Negative code = 1955657) Urobilinogen urine, POC <2.0 See_Comment [Au tomated message] (test code = 6761364) The sy stem which generated this result transmitted ref erence range: <=2.0. T he reference range was not used to int erpret this result as normal/abnormal . Nitrite urine, POC (test Negative Negative code = 8094574) Leukocyte esterase Large Negative A urine, POC (test code = 3471643) Lab Interpretation (test Abnormal code = 35930-2) [facility] urinalysis [id number] 19:54:00 Test Item Value Reference Range Interpretation Comments Color urine, POC (test Yellow code = 6700435) Clarity urine, POC (test Clear code = 5921877) Glucose urine, POC (test Negative Negative code = 3155407) Bilirubin urine, POC Negative Negative (test code = 8291193) Ketones urine, POC (test Negative Negative code = 3819250) Specific gravity urine, 1.005-1.030 POC (test code = 2028018) Blood urine, POC (test Negative Negative code = 2897909) pH urine, POC (test code See_Comment [A utomated message] = 1306611) The system [employer] h generated this result transmitted ref erence range: 5.0, 5.5 , 6.0, 6.5, 7.0, 7.5, 8.0, 8.5. The refere nce range was not u sed to interpret this result as normal/abnor mal. Protein urine, POC (test Negative Negative code = 0356005) Urobilinogen urine, POC <2.0 See_Comment [Au tomated message] (test code = 2012357) The sy stem which generated this result transmitted ref erence range: <=2.0. T he reference range was not used to int erpret this result as normal/abnormal . Nitrite urine, POC (test Negative Negative code = 4650900) Leukocyte esterase Large Negative A urine, POC (test code = 9761094) Lab Interpretation (test Abnormal code = 69594-9) [facility] ABDOMEN 1 [id number] 09:49:00 [facility] 1955 Sex: F Name: NANDO GILL [facility] : 1955 Age/S: 65 / F [place] Unit #: [id number] Loc: [place] [address] Phys: Emory Medina MD Acct: [id number] Dis Date: Status: REG CLI PHONE #: [phone] Exam Date: 02/16/2021 0940 FAX #: Reason: CONSTIPATION UNSPECIFIED EXAMS: CPT: [id number] XR ABDOMEN 1 V 12620 Fluoro Time: DAP (Gy m2): Air Kerma (mGy): EXAM: - XR ABDOMEN 1 V INDICATION: CONSTIPATION UNSPECIFIED T18 TECHNIQUE: Frontal abdominal radiograph. FINDINGS: No bowel obstruction or ileus seen. Small amount of stool in the colon. IMPRESSION: Small amount of stool in the colon. at 0949 Reported and signed by: Zackary Nelson CC: Emory Medina MD PAGE 1 Signed Report Name: NANDO GILL [facility] : 1955 Age/S: 65 / F [place] Unit #: [id number] Loc: [place] [address] Phys: Emory Medina MD Acct: [id number] Dis Date: Status: REG CLI PHONE #: [phone] Exam Date: 02/16/2021 0940 FAX #: Reason: CONSTIPATION UNSPECIFIED EXAMS: CPT: [id number] XR ABDOMEN 1 V 63973 Fluoro Time: DAP (Gy m2): Air Kerma (mGy): (Continued) Technologist: Jeanna Coleman, RT(R) Trnscb Date/Time: 02/16/2021 (49) [id number] Orig Print D/T: S: 02/16/2021 (8526) PAGE 2 Signed ReportOCT, RETINA - OS - LEFT [id number] 19:35:53Quality was good. Scan locations included subfoveal. Progression has no prior data. Findings includenormal observations.[facility] ENDOTHELIAL PHOTOGRAPHY - OS - LEFT [id number] 19:32:06CD OD 3000, OS 1100Consistent finding of corneal stromal [facility]
[2022-10-06] MEDS ORDERED: FAMOTIDINE 20 MG/2 ML VIAL IV ONE (18:50)
[2022-10-06] MEDS ORDERED: KETOROLAC 30 MG/ML INJ ONE (18:50)
[2022-10-06 18:53] LABS: Hematocrit 41.4 % (36.0-45.0); Lymphocytes % 13.1 % (15.3-44.8); MCV 92.1 fL (80-100); MPV 6.5 fL (7.6-11.3); RBC Red Blood Cell Count 4.49 M/uL (3.86-4.86)
[2022-10-06 19:11] LABS: Albumin 3.6 g/dL (3.4-5.0); Bilirubin Total 0.3 mg/dL (0.2-1.0); Potassium 3.6 mEq/L (3.5-5.1); Protein, Total 7.8 g/dL (6.4-8.2)
--- NOTE | 2022-10-06 19:24 | RAD REPORT ---
EXAM DESCRIPTION: US - Abdomen Exam Limited - 10/06/2022 7:04 pm CLINICAL HISTORY: ABD PAIN COMPARISON: <Comparisons> FINDINGS: The gallbladder demonstrates multiple gallstones. No pericholecystic fluid or gallbladder wall thickening. The common bile duct is normal measuring 4 mm. The liver demonstrates no findings of intrahepatic biliary dilatation. IMPRESSION: Cholelithiasis.
--- NOTE | 2022-10-06 19:36 | RAD REPORT ---
EXAM DESCRIPTION: CTAbdomen Pelvis W Contrast - 10/06/2022 7:29 pm CLINICAL HISTORY: Abdominal pain. ABD PAIN COMPARISON: <Comparisons> TECHNIQUE: Biphasic CT imaging of the abdomen and pelvis was performed with 100 ml non-ionic IV cont rast. All CT scans are performed using dose optimization technique as appropriate and may include automated exposure control or mA/KV adjustment according to patient size. FINDINGS: The lung bases are clear. The liver, spleen, pancreas, adrenal glands and kidneys are within normal limits. Distended gallbladd er containing multiple stones. No bowel obstruction, free air, free fluid or abscess. The appendix is normal. No evidence of signi ficant lymphadenopathy. No suspicious bony findings. IMPRESSION: Distended gallbladder with multiple gallstones. HIDA scan may be of value for further ev aluation.
--- NOTE | 2022-10-06 21:43 | EDPHYS ---
Physician Documentation [facility] Name: Prabha Gill Age: 67 yrs Sex: Female : 1955 Arrival Date: 10/06/2022 Time: 17:53 Bed 2 Private MD: ED Physician Clif Xavier HPI: 10/06 18:38 This 67 yrs old Female presents to ER via Ambulatory with complaints of Abdominal Pain. snw 18:38 The patient presents with abdominal pain in the upper abdomen, in the lower abdomen. snw Onset: The symptoms/episode began/occurred suddenly, this morning. The symptoms do not radiate. The symptoms are described as constant. Severity of pain: At its worst the pain was moderate in the emergency department the pain is unchanged. The patient has not experienced similar symptoms in the past. It is unknown whether or not the patient has recently seen a physician. pain to right mid abdomen, up into epigastric area "a little bit". Historical: - Allergies: 18:13 No Known Allergies; iw - Home Meds: 18:13 simvastatin 20 mg/5 mL (4 mg/mL) Oral suspension daily [Active]; Taltz Syringe 80 mg/mL iw subcutaneous Syringe every 4 weeks [Active]; Repatha SureClick 140 mg/mL subcutaneous Pen Injector every 2 weeks [Active]; Ambien 5 mg Oral tablet every day at bedtime [Active]; spironolactone 25 mg Oral tablet [Active]; dicyclomine 10 mg oral capsule [Active]; - PMHx: 18:13 IBS; breast cancer; Hypercholesterolemia; iw - PSHx: 18:13 right mastectomy; left cornea trasnplant; hysterectomy; left mastectomy; iw Hemorrhoidectomy; - Immunization history:: Adult Immunizations up to date. - Social history:: Smoking status: Patient denies any tobacco usage or history of. ROS: 18:37 Constitutional: Negative for fever, chills, and weight loss, Eyes: Negative for injury, snw pain, redness, and discharge, ENT: Negative for injury, pain, and discharge, Neck: Negative for injury, pain, and swelling, Cardiovascular: Negative for chest pain, palpitations, and edema, Respiratory: Negative for shortness of breath, cough, wheezing, and pleuritic chest pain, Back: Negative for injury and pain, : Negative for injury, bleeding, discharge, and swelling, MS/Extremity: Negative for injury and deformity, Skin: Negative for injury, rash, and discoloration, Neuro: Negative for headache, weakness, numbness, tingling, and seizure, Psych: Negative for depression, anxiety, suicide ideation, homicidal ideation, and hallucinations. 18:37 Abdomen/GI: Positive for abdominal pain, diarrhea, of the right upper quadrant and right lower quadrant, hx of gallstone. Exam: 18:36 Constitutional: This is a well developed, well nourished patient who is awake, alert, snw and in no acute distress. Head/Face: Normocephalic, atraumatic. Eyes: Pupils equal round and reactive to light, extra-ocular motions intact. Lids and lashes normal. Conjunctiva and sclera are non-icteric and not injected. Cornea within normal limits. Periorbital areas with no swelling, redness, or edema. ENT: Nares patent. No nasal discharge, no septal abnormalities noted. Tympanic membranes are normal and external auditory canals are clear. Oropharynx with no redness, swelling, or masses, exudates, or evidence of obstruction, uvula midline. Mucous membranes moist. Neck: Trachea midline, no thyromegaly or masses palpated, and no cervical lymphadenopathy. Supple, full range of motion without nuchal rigidity, or vertebral point tenderness. No Meningismus. Chest/axilla: Normal chest wall appearance and motion. Nontender with no deformity. No lesions are appreciated. Cardiovascular: Regular rate and rhythm with a normal S1 and S2. No gallops, murmurs, or rubs. Normal PMI, no JVD. No pulse deficits. Respiratory: Lungs have equal breath sounds bilaterally, clear to auscultation and percussion. No rales, rhonchi or wheezes noted. No increased work of breathing, no retractions or nasal flaring. Back: No spinal tenderness. No costovertebral tenderness. Full range of motion. Skin: Warm, dry with normal turgor. Normal color with no rashes, no lesions, and no evidence of cellulitis. MS/ Extremity: Pulses equal, no cyanosis. Neurovascular intact. Full, normal range of motion. Neuro: Awake and alert, GCS 15, oriented to person, place, time, and situation. Cranial nerves II-XII grossly intact. Motor strength 5/5 in all extremities. Sensory grossly intact. Cerebellar exam normal. Normal gait. Psych: Awake, alert, with orientation to person, place and time. Behavior, mood, and affect are within normal limits. 18:36 Abdomen/GI: Inspection: obese Bowel sounds: normal, Palpation: moderate abdominal tenderness, severe abdominal tenderness, in the right upper quadrant and right lower quadrant. 18:40 Abdomen/GI: Indicators: De Leon's sign is positive. snw 18:40 Abdomen/GI: Indicators: McBurney's point is tender. snw Vital Signs: 18:12 BP 149 / 93; Pulse 73; Resp 16; Temp 98.2; Pulse Ox 100% on R/A; Weight 76.2 kg; Height iw 5 ft. 1 in. ; Pain 8/10; 18:53 BP 166 / 78; Pulse 66; Resp 15; Pulse Ox 99% on R/A; hb 20:00 BP 152 / 72; Pulse 68; Resp 15; Pulse Ox 100% ; vc1 21:00 BP 164 / 83; Pulse 67; Resp 16; Pulse Ox 99% ; vc1 22:03 BP 148 / 87; Pulse 70; Resp 17; Temp 98; Pulse Ox 100% on R/A; rv 18:12 Body Mass Index 31.74 (76.20 kg, 154.94 cm) iw 18:12 Pain Scale: Adult iw [place] Coma Score: 22:03 Eye Response: spontaneous(4). Motor Response: obeys commands(6). Verbal Response: rv oriented(5). Total: 15. MDM: 18:20 Patient medically screened. snw 18:39 Differential diagnosis: appendicitis, cholecystitis, Cholelithiasis, gastritis, snw gastroesophageal reflux disease, pancreatitis, Pyelonephritis. Data reviewed: vital signs, nurses notes. I considered the following discharge prescriptions or medication management in the emergency department Medications were administered in the Emergency Department. See 18:36 Order name: CBC with Diff; Complete Time: 18:58 formerly [facility] 10/06 18:36 Order name: CMP; Complete Time: 19:11 [facility] 10/06 18:36 Order name: Lipase; Complete Time: 19:11 [facility] 10/06 18:36 Order name: Urinalysis w/ reflexes [facility] 10/06 18:36 Order name: Blood Culture Adult (2) snw 10/06 18:36 Order name: Abdomen Limited US; Complete Time: 19:31 snw 10/06 18:36 Order name: CT Abd/Pelvis - IV Contrast Only; Complete Time: 19:38 snw 10/06 18:36 Order name: IV Saline Lock; Complete Time: 18:47 snw 10/06 18:36 Order name: Labs collected and sent; Complete Time: 18:47 snw Administered Medications: 18:52 Drug: Famotidine IVP 20 mg Route: IVP; Site: left antecubital; hb 22:02 Follow up: Response: No adverse reaction rv 18:52 Drug: TORadol - Ketorolac IVP 15 mg Route: IVP; Site: left antecubital; hb 22:02 Follow up: Response: Pain is decreased rv 21:55 Drug: Dicyclomine PO 20 mg Route: PO; rv 22:01 Follow up: Response: Medication administered at discharge. rv 21:57 Drug: fentaNYL (PF) IVP 25 mcg Route: IVP; Site: right antecubital; rv 22:02 Follow up: Response: Medication administered at discharge. rv Disposition Summary: 10/06/22 21:42 Discharge Ordered Location: Home snw Condition: Stable snw Diagnosis - Disease of gallbladder, unspecified snw - Colic snw Followup: snw - With: Emergency Department - When: As needed - Reason: Worsening of condition Followup: snw - With: Private Physician - When: 1 - 2 days - Reason: Recheck today's complaints, Continuance of care, Re-evaluation by your physician Discharge Instructions: - Discharge Summary Sheet snw - Biliary Colic, Adult snw - Cholelithiasis snw - Gallbladder Nuclear Scan snw - Gas and Gas Pains, Pediatric snw - Gallbladder Eating Plan snw Forms: - Medication Reconciliation Form snw - Thank You Letter snw - Antibiotic Education snw - Prescription Opioid Use snw Prescriptions: - promethazine 25 mg Oral Tablet - take 1 tablet by ORAL route every 6 hours As needed; 20 tablet; Refills: 0, snw Product Selection Permitted - dicyclomine 20 mg Oral Tablet - take 1 tablet by ORAL route 3 times per day; 21 tablet; Refills: 0, Product snw Selection Permitted Signatures: Dispatcher [employer] Christi Soliman FNP-C FIORDALIZA-Csnw Marina Torres RN RN iw Tiffany Zayas RN RN hb Vicente, Ronaldo, RN RN rv Corrections: (The following items were deleted from the chart) 18:39 18:36 Constitutional: This is a well developed, well nourished patient who is awake, snw alert, and in no acute distress. Head/Face: Normocephalic, atraumatic. Eyes: Pupils equal round and reactive to light, extra-ocular motions intact. Lids and lashes normal. Conjunctiva and sclera are non-icteric and not injected. Cornea within normal limits. Periorbital areas with no swelling, redness, or edema. ENT: Nares patent. No nasal discharge, no septal abnormalities noted. Tympanic membranes are normal and external auditory canals are clear. Oropharynx with no redness, swelling, or masses, exudates, or evidence of obstruction, uvula midline. Mucous membranes moist. Neck: Trachea midline, no thyromegaly or masses palpated, and no cervical lymphadenopathy. Supple, full range of motion without nuchal rigidity, or vertebral point tenderness. No Meningismus. Chest/axilla: Normal chest wall appearance and motion. Nontender with no deformity. No lesions are appreciated. Cardiovascular: Regular rate and rhythm with a normal S1 and S2. No gallops, murmurs, or rubs. Normal PMI, no JVD. No pulse deficits. Respiratory: Lungs have equal breath sounds bilaterally, clear to auscultation and percussion. No rales, rhonchi or wheezes noted. No increased work of breathing, no retractions or nasal flaring. Back: No spinal tenderness. No costovertebral tenderness. Full range of motion. Skin: Warm, dry with normal turgor. Normal color with no rashes, no lesions, and no evidence of cellulitis. MS/ Extremity: Pulses equal, no cyanosis. Neurovascular intact. Full, normal range of motion. Neuro: Awake and alert, GCS 15, oriented to person, place, time, and situation. Cranial nerves II-XII grossly intact. Motor strength 5/5 in all extremities. Sensory grossly intact. Cerebellar exam normal. Normal gait. Psych: Awake, alert, with orientation to person, place and time. Behavior, mood, and affect are within normal limits. snw
--- NOTE | 2022-10-06 21:43 | ER ---
Nurse's Notes [facility] Name: Prabha Gill Age: 67 yrs Sex: Female : 1955 Arrival Date: 10/06/2022 Time: 17:53 Bed 2 Private MD: Diagnosis: Disease of gallbladder, unspecified;Colic Presentation: 10/06 18:12 Chief complaint: Patient states: having mid stomach pain radiating to RLQ and up into iw chest . started at 0700 today , +diarrhea. Coronavirus screen: Client presents with at least one sign or symptom that may indicate coronavirus-19. Ebola Screen: Patient negative for fever greater than or equal to 101.5 degrees Fahrenheit, and additional compatible Ebola Virus Disease symptoms Patient denies exposure to infectious person. Patient denies travel to an Ebola-affected area in the 21 days before illness onset. No symptoms or risks identified at this time. Initial Sepsis Screen: Does the patient meet any 2 criteria? No. Patient's initial sepsis screen is negative. Does the patient have a suspected source of infection? No. Patient's initial sepsis screen is negative. Risk Assessment: Do you want to hurt yourself or someone else? Patient reports no desire to harm self or others. Onset of symptoms was October 06, 2022. 18:12 Method Of Arrival: Ambulatory iw 18:12 Acuity: PARAM 3 iw Historical: - Allergies: 18:13 No Known Allergies; iw - Home Meds: 18:13 simvastatin 20 mg/5 mL (4 mg/mL) Oral suspension daily [Active]; Taltz Syringe 80 mg/mL iw subcutaneous Syringe every 4 weeks [Active]; Repatha SureClick 140 mg/mL subcutaneous Pen Injector every 2 weeks [Active]; Ambien 5 mg Oral tablet every day at bedtime [Active]; spironolactone 25 mg Oral tablet [Active]; dicyclomine 10 mg oral capsule [Active]; - PMHx: 18:13 IBS; breast cancer; Hypercholesterolemia; iw - PSHx: 18:13 right mastectomy; left cornea trasnplant; hysterectomy; left mastectomy; iw Hemorrhoidectomy; - Immunization history:: Adult Immunizations up to date. - Social history:: Smoking status: Patient denies any tobacco usage or history of. Screenin:[birth year] [facility] ED Fall Risk Assessment (Adult) Score/Fall Risk Level 0 - 2 = Low Risk hb Oriented to surroundings, Maintained a safe environment. Abuse screen: Denies threats or abuse. Denies injuries from another. Nutritional screening: No deficits noted. Tuberculosis screening: No symptoms or risk factors identified. Assessment: 18:52 General: Appears in no apparent distress. Behavior is calm, cooperative. Pain: Pain hb currently is 8 out of 10 on a pain scale. Neuro: Level of Consciousness is awake, alert, obeys commands, Oriented to person, place, time, situation. Cardiovascular: Patient's skin is warm and dry. Respiratory: Respiratory effort is even, unlabored, Respiratory pattern is regular, symmetrical. GI: Reports upper abdominal pain, diarrhea, nausea. : No signs and/or symptoms were reported regarding the genitourinary system. EENT: No signs and/or symptoms were reported regarding the EENT system. Derm: Skin is pink, warm \T\ dry. Musculoskeletal: No signs and/or symptoms reported regarding the musculoskeletal system. 18:53 Reassessment: US at bedside. hb 20:00 Reassessment: No changes from previously documented assessment. Patient and/or family vc1 updated on plan of care and expected duration. Pain level reassessed. Patient is alert, oriented x 3, equal unlabored respirations, skin warm/dry/pink. 21:00 Reassessment: No changes from previously documented assessment. Patient and/or family vc1 updated on plan of care and expected duration. Pain level reassessed. Patient is alert, oriented x 3, equal unlabored respirations, skin warm/dry/pink. 22:02 Reassessment: Patient appears in no apparent distress at this time. PRESCRITION AND rv INSTRUCTIONS given to patient and family at bedside. discharged ambulatory. Vital Signs: 18:12 BP 149 / 93; Pulse 73; Resp 16; Temp 98.2; Pulse Ox 100% on R/A; Weight 76.2 kg; Height iw 5 ft. 1 in. ; Pain 8/10; 18:53 BP 166 / 78; Pulse 66; Resp 15; Pulse Ox 99% on R/A; hb 20:00 BP 152 / 72; Pulse 68; Resp 15; Pulse Ox 100% ; vc1 21:00 BP 164 / 83; Pulse 67; Resp 16; Pulse Ox 99% ; vc1 22:03 BP 148 / 87; Pulse 70; Resp 17; Temp 98; Pulse Ox 100% on R/A; rv 18:12 Body Mass Index 31.74 (76.20 kg, 154.94 cm) iw 18:12 Pain Scale: Adult iw [place] Coma Score: 22:03 Eye Response: spontaneous(4). Motor Response: obeys commands(6). Verbal Response: rv oriented(5). Total: 15. ED Course: 17:54 Patient arrived in ED. ts1 18:13 Triage completed. iw 18:17 Arm band placed on. iw 18:20 Christi Moran FNP-C is PHCP. snw 18:20 Clif Xavier MD is Attending Physician. snw 18:47 Inserted saline lock: 22 gauge in left antecubital area, using aseptic technique. Blood ll1 collected. 18:53 Patient has correct armband on for positive identification. hb 19:06 Abdomen Limited US In Process Unspecified. EDMS 19:19 Blood Culture Adult (2) Sent. bc6 19:19 Inserted saline lock: 20 gauge in right antecubital area, using aseptic technique. bc6 19:30 CT Abd/Pelvis - IV Contrast Only In Process Unspecified. EDMS 19:59 Renu Harris, LEON is Primary Nurse. vc1 20:00 Blood Culture Adult (2) Sent. vc1 Administered Medications: 18:52 Drug: Famotidine IVP 20 mg Route: IVP; Site: left antecubital; hb 22:02 Follow up: Response: No adverse reaction rv 18:52 Drug: TORadol - Ketorolac IVP 15 mg Route: IVP; Site: left antecubital; hb 22:02 Follow up: Response: Pain is decreased rv 21:55 Drug: Dicyclomine PO 20 mg Route: PO; rv 22:01 Follow up: Response: Medication administered at discharge. rv 21:57 Drug: fentaNYL (PF) IVP 25 mcg Route: IVP; Site: right antecubital; rv 22:02 Follow up: Response: Medication administered at discharge. rv Medication: 18:53 VIS not applicable for this client. hb Outcome: 21:42 Discharge ordered by . snw 22:04 Patient left the ED. rv Signatures: Dispatcher [employer] EDMS Christi Moran FNP-C DRILL HAND-Csnw Marina Torres, RN RN iw Tiffany Zayas, RN RN hb Sohail Nieves, RN RN rv Julio Edge, RN RN ll1 Renu Harris, RN RN vc1 Mona Silva6 Sarah Maldonado, KIRA MALONE ts1
[2022-10-06] MEDS ORDERED: FENTANYL CITR 100 MCG/2 ML ONE (21:56)
[2022-10-06] MEDS ORDERED: DICYCLOMINE HCL 10 MG CAP ONE (21:56)
[2022-10-06 22:32] VITALS: BP 148/87; TEMP 98; O2SAT 100
== END 2022-10-06 22:04 | disposition home or self-care (01) ==
LOC: ER 17:53
DX: K82.9 Disease of gallbladder, unspecified (principal); E78.00 Pure hypercholesterolemia, unspecified; Z85.3 Personal history of malignant neoplasm of breast; Z90.13 Acquired absence of bilateral breasts and nipples
CPT/HCPCS: 87040 ×2; 85025; 36415; 83690; 80053; 74177; 76705; Q9967; J3010